=== PATIENT | male | born 1985 | race Caucasian/White ===

== ENCOUNTER 2017-07-26 10:33 | Emergency (ER) | payer BC ==
--- NOTE | 2017-07-26 11:21 | ED ---
Syncope HPI - General Chief Complaint: Syncope Stated Complaint: POSS SEIZURE Time Seen by Provider: 07/26/17 10:55 Source: patient Mode of arrival: wheelchair Limitations: no limitations - History of Present Illness Initial Comments: This is a 32-year-old female who presents with a chief complaint of syncope which occurred at approximately 5:00 this morning. The patient states he was sitting on a couch, had a "strange" taste in his mouth, and then he woke up on the floor next to the couch feeling confused and dizzy. He states he also had vision changes where he saw "floaters" immediately after he woke up. He is unsure if he hit his head. Patient does complain of mild headache but no associated symptoms.. The patient has a history of syncope with unknown cause that has never been treated. Patient has seen cardiologists for his prior syncopal episodes did have some evidence of postural tachycardia However, the patient states this episode was different in that he did not experience the "tunnel vision" that typically precedes the syncopal episode. He also states he has never experienced a taste in his mouth or wake up feeling confused and dizzy. He is concerned that he possibly had a seizure, but has no history of seizures. He denies changes in medication or associated weakness. The does not have vision in his right eye due to congenital adrenal hyperplasia. - Related Data Home Medications Medication Instructions Recorded Confirmed Fludrocortisone [Florinef] 0.1 mg PO DAILY 04/24/14 07/26/17 Hydrocortisone [Cortef] 10 mg PO TID 04/24/14 07/26/17 Allergies Allergy/AdvReac Type Severity Reaction Status Date / Time latex Allergy burning, Verified 07/26/17 11:11 itchy skin Review of Systems ROS Statement: Those systems with pertinent positive or pertinent negative responses have been documented in the HPI. ROS Other: All systems not noted in ROS Statement are negative. Past Medical History Additional Past Medical History / Comment(s): congenital adrenial hyperplasia, migraines History of Any Multi-Drug Resistant Organisms: None Reported Past Surgical History: Bariatric Surgery Additional Past Surgical History / Comment(s): lap band, retina implant, rt eye cataract Past Anesthesia/Blood Transfusion Reactions: No Reported Reaction Past Psychological History: Depression Smoking Status: Never smoker Past Alcohol Use History: Occasional Past Drug Use History: None Reported General Exam Limitations: no limitations General appearance: alert, in no apparent distress Head exam: Present: atraumatic, normocephalic, normal inspection, other (Head is non-tender with palpation) Eye exam: Present: normal appearance, PERRL, EOMI. Absent: scleral icterus, conjunctival injection, nystagmus, periorbital swelling Pupils: Present: normal accommodation ENT exam: Present: normal exam, normal oropharynx, mucous membranes moist, TM's normal bilaterally Neck exam: Present: normal inspection, full ROM. Absent: tenderness, meningismus, lymphadenopathy Respiratory exam: Present: normal lung sounds bilaterally. Absent: respiratory distress, wheezes, rales, rhonchi, stridor Cardiovascular Exam: Present: regular rate, normal rhythm, normal heart sounds. Absent: systolic murmur, diastolic murmur, rubs, gallop, clicks Extremities exam: Present: normal inspection, full ROM, normal capillary refill , other. Absent: pedal edema, joint swelling Neurological exam: Present: alert, oriented X3, CN II-XII intact, reflexes normal, other (Finger to nose intact bilaterally without over shooting). Absent : motor sensory deficit Psychiatric exam: Present: normal affect, normal mood Skin exam: Present: warm, dry, intact, normal color. Absent: rash Course Vital Signs 07/26/17 10:43 Temperature 98.7 F Pulse Rate 110 H Respiratory 18 Rate Blood Pressure 142/96 O2 Sat by Pulse 97 Oximetry Medical Decision Making - Medical Decision Making 32-year-old male present emergency department for possible seizure or syncopal episode. 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 Patient's laboratory, EKG unremarkable along with CT. Patient be followed up with on-call neurology return parameters were discussed. - Lab Data Result diagrams: 07/26/17 12:16 07/26/17 12:16 Lab Results 07/26/17 07/26/17 07/26/17 Range/Units 12:16 12:16 12:16 WBC 8.7 (3.8-10.6) k/uL RBC 4.99 (4.30-5.90) m/uL Hgb 15.6 (13.0-17.5) gm/dL Hct 45.0 (39.0-53.0) % MCV 90.2 (80.0-100.0) fL MCH 31.2 (25.0-35.0) pg MCHC 34.6 (31.0-37.0) g/dL RDW 12.5 (11.5-15.5) % Plt Count 306 (150-450) k/uL Neutrophils % 82 % Lymphocytes % 14 % Monocytes % 2 % Eosinophils % 1 % Basophils % 0 % Neutrophils # 7.1 (1.3-7.7) k/uL Lymphocytes # 1.3 (1.0-4.8) k/uL Monocytes # 0.2 (0-1.0) k/uL Eosinophils # 0.1 (0-0.7) k/uL Basophils # 0.0 (0-0.2) k/uL Sodium 139 (137-145) mmol/L Potassium 4.7 (3.5-5.1) mmol/L Chloride 104 (98-107) mmol/L Carbon Dioxide 22 (22-30) mmol/L Anion Gap 13 mmol/L BUN 11 (9-20) mg/dL Creatinine 0.70 (0.66-1.25) mg/dL Est GFR (MDRD) Af Amer >60 (>60 ml/min/1.73 sqM) Est GFR (MDRD) Non-Af >60 (>60 ml/min/1.73 sqM) Glucose 92 (74-99) mg/dL Calcium 9.7 (8.4-10.2) mg/dL Total Bilirubin 0.7 (0.2-1.3) mg/dL AST 27 (17-59) U/L ALT 24 (21-72) U/L Alkaline Phosphatase 47 (38-126) U/L Total Protein 7.8 (6.3-8.2) g/dL Albumin 4.6 (3.5-5.0) g/dL Urine Color Yellow Urine Appearance Clear (Clear) Urine pH 7.0 (5.0-8.0) Ur Specific [place] 1.010 (1.001-1.035) Urine Protein Negative (Negative) Urine Glucose (UA) Negative (Negative) Urine Ketones Negative (Negative) Urine Blood Small H (Negative) Urine Nitrite Negative (Negative) Urine Bilirubin Negative (Negative) Urine Urobilinogen <2.0 (<2.0) mg/dL Ur Leukocyte Esterase Negative (Negative) Urine RBC 3 (0-5) /hpf Urine WBC <1 (0-5) /hpf Ur Squamous Epith Cells <1 (0-4) /hpf Urine Mucus Rare H (None) /hpf Urine Opiates Screen Not Detected (NotDetected) Ur Oxycodone Screen Not Detected (NotDetected) Urine Methadone Screen Not Detected (NotDetected) Ur Propoxyphene Screen Not Detected (NotDetected) Ur Barbiturates Screen Not Detected (NotDetected) U Tricyclic Antidepress Not Detected (NotDetected) Ur Phencyclidine Scrn Not Detected (NotDetected) Ur Amphetamines Screen Not Detected (NotDetected) U Methamphetamines Scrn Not Detected (NotDetected) U Benzodiazepines Scrn Not Detected (NotDetected) Urine Cocaine Screen Not Detected (NotDetected) U Marijuana (THC) Screen Not Detected (NotDetected) Disposition Clinical Impression: Syncope Disposition: HOME SELF-CARE Condition: Stable Instructions: Syncope (ED) Additional Instructions: Please return to the Emergency Department if symptoms worsen or any other concerns. Referrals: Diamond Sheth DO [Primary Care Provider] - 1-2 days Trudy Perez MD [STAFF PHYSICIAN] - 1-2 days Time of Disposition: 13:39
[2017-07-26 12:24] LABS: Basophils % (A) 0 %; Eosinophils # (A) 0.1 k/uL (0-0.7); Eosinophils % (A) 1 %; HGB 15.6 gm/dL (13.0-17.5); Lymphocytes # (A) 1.3 k/uL (1.0-4.8); Lymphocytes % (A) 14 %; MCH 31.2 pg (25.0-35.0); MCHC 34.6 g/dL (31.0-37.0); MCV 90.2 fL (80.0-100.0); Monocytes # (A) 0.2 k/uL (0-1.0); Monocytes % (A) 2 %; Neutrophils # (A) 7.1 k/uL (1.3-7.7); Neutrophils % (A) 82 %; Platelet Count 306 k/uL (150-450); RBC 4.99 m/uL (4.30-5.90); RDW 12.5 % (11.5-15.5); WBC 8.7 k/uL (3.8-10.6)
[2017-07-26 12:25] LABS: Appearance,Urine Clear (Clear); Bilirubin,Urine Negative (Negative); Blood,Urine Small (Negative); Color,Urine Yellow; Glucose,Urine (UA) Negative (Negative); Ketones,Urine Negative (Negative); Leukocyte Esterase,Urine Negative (Negative); Mucus,Urine Rare /hpf; Nitrite,Urine Negative (Negative); Protein,Urine Negative (Negative); RBC,Urine 3 /hpf (0-5); Squamous Epithelial Cell,Urine <1 /hpf (0-4); Urobilinogen,Urine <2.0 mg/dL (<2.0); WBC,Urine <1 /hpf (0-5)
[2017-07-26 12:35] LABS: Albumin 4.6 g/dL (3.5-5.0); Anion Gap 13 mmol/L; Calcium 9.7 mg/dL (8.4-10.2); Carbon Dioxide 22 mmol/L (22-30); Chloride 104 mmol/L (98-107); Glucose 92 mg/dL (74-99); Sodium 139 mmol/L (137-145); Total Bilirubin 0.7 mg/dL (0.2-1.3); Total Protein 7.8 g/dL (6.3-8.2)
[2017-07-26 12:40] LABS: ALT 24 U/L (21-72); AST 27 U/L (17-59); Alkaline Phosphatase 47 U/L (38-126); Blood Urea Nitrogen 11 mg/dL (9-20); Potassium 4.7 mmol/L (3.5-5.1)
[2017-07-26 12:54] LABS: Amphetamine Screen,Urine Not Detected (NotDetected); Barbiturate Screen,Urine Not Detected (NotDetected); Benzodiazepines Screen,Urine Not Detected (NotDetected); Cocaine Screen,Urine Not Detected (NotDetected); Methadone Screen, Urine Not Detected (NotDetected); Opiate Screen,Urine Not Detected (NotDetected); Oxycodone Screen, Urine Not Detected (NotDetected); Phencyclidine Screen,Urine Not Detected (NotDetected); Tricyclic Antidepressant,Urine Not Detected (NotDetected); Urn Cannabinoid Scrn Not Detected (NotDetected)
--- NOTE | 2017-07-26 13:06 | CT ---
EXAMINATION TYPE: CT brain wo con DATE OF EXAM: 07/26/2017 COMPARISON: NONE HISTORY: possible seizure vs. syncopal. Coughing episode led to syncope. CT DLP: 1046 mGycm. Automated Exposure Control for Dose Reduction was Utilized. TECHNIQUE: CT scan of the head is performed without contrast. FINDINGS: There is no acute intracranial hemorrhage, mass effect, or midline shift identified. The ventricles and sulci are within normal limits in size. Near complete opacification of smaller right sphenoid sinus is present. There is mild mucosal thickening in the left sphenoid sinus. There is mild mucosal thickening with patchy opacification ethmoid sinuses bilaterally. There is scleral buckle in right globe. Left globe is intact. IMPRESSION: No acute intracranial hemorrhage or midline shift is seen. Possible acute on chronic par anasal sinus disease as detailed above, correlate clinically.
[2017-07-26 13:50] VITALS: BP 126/71; PULSE 76; RESP 12; TEMP 98.2
== END 2017-07-26 14:03 | disposition home or self-care (01) ==
LOC: EC 10:33
DX: R55 Syncope and collapse (principal); E25.0 Congenital adrenogenital disorders associated with enzyme deficiency; H43.399 Other vitreous opacities, unspecified eye; R51 Headache; Z79.52 Long term (current) use of systemic steroids; Z91.040 Latex allergy status; Z98.890 Other specified postprocedural states
CPT/HCPCS: 36415; 70450; 80053; 80306; 81001; 85025; 93005; 99284

== ENCOUNTER 2018-12-13 20:02 | Emergency (ER) | payer BC, OTHER ==
[2018-12-13 20:08] VITALS: TEMP 98.3
[2018-12-13 21:10] LABS: Amphetamine Screen,Urine Not Detected (NotDetected); Barbiturate Screen,Urine Not Detected (NotDetected); Benzodiazepines Screen,Urine Not Detected (NotDetected); Cocaine Screen,Urine Not Detected (NotDetected); Methadone Screen, Urine Not Detected (NotDetected); Opiate Screen,Urine Not Detected (NotDetected); Oxycodone Screen, Urine Not Detected (NotDetected); Phencyclidine Screen,Urine Not Detected (NotDetected); Tricyclic Antidepressant,Urine Not Detected (NotDetected); Urn Cannabinoid Scrn Detected (NotDetected)
[2018-12-13] MEDS ORDERED: SERTRALINE 100 MG TAB PO STA (23:16)
[2018-12-13] MEDS ORDERED: OLANZapine 5 MG TAB PO STA (23:16)
--- NOTE | 2018-12-13 23:18 | ED ---
Psych HPI - General Source: patient Mode of arrival: ambulatory <Jeevan Gibson - Last Filed: 12/14/18 12:46> - General Source: RN notes reviewed, old records reviewed <Bret Cheng - Last Filed: 12/14/18 18:14> - General Chief Complaint: Psychiatric Symptoms Stated Complaint: Suicidal Time Seen by Provider: 12/13/18 20:08 - History of Present Illness Initial Comments: 33-year-old male patient with past history of schizoaffective disorder presents to ED with chief complaint of hearing voices that are telling her to himself, telling him to hang himself. Patient denies taking any action to hurt himself or hurt any other people. Patient denies any thoughts of planned of hurting any other people. Patient denies any other complaints at this time. Systemic: Pt denies fatigue, fever/chills, rash. Pt denies weakness, night sweats, weight loss. Neuro: Pt denies headache, visual disturbances, syncope or pre-syncope. HEENT: Pt denies ocular discharge or irritation, otalgia, rhinorrhea, pharyngitis or notable lymphadenopathy. Cardiopulmonary: Pt denies chest pain, SOB, heart palpitations, dyspnea on exertion. Abdominal/GI: Pt denies abdominal pain, n/v/d. : Pt denies dysuria, burning w/ urination, frequency/urgency. Denies new onset urinary or bowel incontinence. MSK: Pt denies myalgia, loss of strength or function in extremities. Neuro: Pt denies new onset weakness, paresthesias. (Bret Cheng) - Related Data Home Medications Medication Instructions Recorded Confirmed Fludrocortisone [Florinef] 0.1 mg PO DAILY 04/24/14 12/13/18 Hydrocortisone [Cortef] 20 mg PO QAM 04/24/14 12/13/18 Hydrocortisone [Cortef] 10 mg PO BID 12/13/18 12/13/18 OLANZapine [ZyPREXA] 15 mg PO HS 12/13/18 12/13/18 Omeprazole 20 mg PO DAILY PRN 12/13/18 12/13/18 Sertraline [Zoloft] 100 mg PO HS 12/13/18 12/13/18 Allergies Allergy/AdvReac Type Severity Reaction Status Date / Time latex Allergy burning, Verified 12/13/18 20:21 itchy skin Review of Systems ROS Other: All systems not noted in ROS Statement are negative. <Jeevan Gibson - Last Filed: 12/14/18 12:46> ROS Other: All systems not noted in ROS Statement are negative. <Bret Cheng - Last Filed: 12/14/18 18:14> ROS Statement: Those systems with pertinent positive or pertinent negative responses have been documented in the HPI. Past Medical History Additional Past Medical History / Comment(s): congenital adrenial hyperplasia, migraines History of Any Multi-Drug Resistant Organisms: None Reported Past Surgical History: Bariatric Surgery Additional Past Surgical History / Comment(s): lap band, retina implant, rt eye cataract Past Anesthesia/Blood Transfusion Reactions: No Reported Reaction Past Psychological History: Depression, Schizoaffective Disorder Smoking Status: Never smoker Past Alcohol Use History: Occasional Past Drug Use History: Marijuana <Jeevan Gibson - Last Filed: 12/14/18 12:46> General Exam Limitations: no limitations <Jeevan Gibson - Last Filed: 12/14/18 12:46> <Bret Cheng - Last Filed: 12/14/18 18:14> - General Exam Comments Initial Comments: Constitutional: NAD, AOX3, Pt has pleasant affect. HEENT: NC/AT, trachea midline, neck supple, no lymphadenopathy. Posterior pharynx non erythematous, without exudates. External ears appear normal, without discharge. Mucous membranes moist. Eyes PERRLA, EOM intact. There is no scleral icterus. No pallor noted. Cardiopulmonary: RRR, no murmurs, rubs or gallops, no JVD noted. Lungs CTAB in anterior and posterior wynne. No peripheral edema. Abdominal exam: Abdomen soft and non-distended. Abdomen non-tender to palpation in all 4 quadrants. Bowel sounds active in LLQ. No hepatosplenomegaly. No ecchymosis Neuro: CN II-XII grossly intact. No nuchal rigidity. No raccon eyes, no hurst sign, no hemotympanum. No cervical spinal tenderness. MSK: No posterior calf tenderness bilaterally, homans sign negative bilaterally. Posterior tibialis and radial pulse +2 bilaterally. Sensation intact in upper and lower extremities. Full active ROM in upper and lower extremities, 5/5 st regnth. (Bret Cheng) Course Vital Signs 12/13/18 12/13/18 12/14/18 20:05 23:08 00:35 Temperature 98.3 F Pulse Rate 75 77 77 Respiratory 16 18 18 Rate Blood Pressure 139/85 115/63 115/63 O2 Sat by Pulse 96 95 95 Oximetry 12/14/18 02:34 Temperature Pulse Rate 70 Respiratory 16 Rate Blood Pressure 112/98 O2 Sat by Pulse Oximetry Medical Decision Making - Lab Data Result diagrams: 12/13/18 23:52 12/13/18 23:52 <Jeevan Gibson - Last Filed: 12/14/18 12:46> - Lab Data Result diagrams: 12/13/18 23:52 12/13/18 23:52 <Bret Cheng - Last Filed: 12/14/18 18:14> - Medical Decision Making I saw this patient in conjunction with the physician dairy and food laboratory assistant. I performed independent history and physical exam. Agree with case management. In addition to seeing the patient to fill out the clinical certification, I was asked to resume home medications and confirm these with the patient. (Jeevan Gibson) 33-year-old male patient with past history of schizoaffective disorder presents to ED with chief complaint of hearing voices that are telling her to himself, telling him to hang himself. Patient denies taking any action to hurt himself or hurt any other people. Patient denies any thoughts of planned of hurting any other people. Patient denies any other complaints at this time. Patient vital signs stable, afebrile. Physical exam did not display acute pathology. EPS reccomended admission. Patient was signed out to Dr. Ritter pending EPS placement. (Bret Cheng) - Lab Data Lab Results 12/13/18 12/13/18 12/13/18 Range/Units 20:30 23:52 23:52 WBC 7.9 (3.8-10.6) k/uL RBC 4.49 (4.30-5.90) m/uL Hgb 13.3 (13.0-17.5) gm/dL Hct 39.7 (39.0-53.0) % MCV 88.5 (80.0-100.0) fL MCH 29.7 (25.0-35.0) pg MCHC 33.5 (31.0-37.0) g/dL RDW 14.3 (11.5-15.5) % Plt Count 335 (150-450) k/uL Neutrophils % 53 % Lymphocytes % 36 % Monocytes % 6 % Eosinophils % 3 % Basophils % 1 % Neutrophils # 4.2 (1.3-7.7) k/uL Lymphocytes # 2.8 (1.0-4.8) k/uL Monocytes # 0.5 (0-1.0) k/uL Eosinophils # 0.2 (0-0.7) k/uL Basophils # 0.1 (0-0.2) k/uL Sodium 136 L (137-145) mmol/L Potassium 4.4 (3.5-5.1) mmol/L Chloride 104 (98-107) mmol/L Carbon Dioxide 22 (22-30) mmol/L Anion Gap 10 mmol/L BUN 16 (9-20) mg/dL Creatinine 0.91 (0.66-1.25) mg/dL Est GFR (CKD-EPI)AfAm >90 (>60 ml/min/1.73 sqM) Est GFR (CKD-EPI)NonAf >90 (>60 ml/min/1.73 sqM) Glucose 95 (74-99) mg/dL Calcium 8.9 (8.4-10.2) mg/dL Total Bilirubin 0.2 (0.2-1.3) mg/dL AST 22 (17-59) U/L ALT 26 (21-72) U/L Alkaline Phosphatase 51 (38-126) U/L Total Protein 6.8 (6.3-8.2) g/dL Albumin 4.0 (3.5-5.0) g/dL Urine Opiates Screen Not Detected (NotDetected) Ur Oxycodone Screen Not Detected (NotDetected) Urine Methadone Screen Not Detected (NotDetected) Ur Propoxyphene Screen Not Detected (NotDetected) Ur Barbiturates Screen Not Detected (NotDetected) U Tricyclic Antidepress Not Detected (NotDetected) Ur Phencyclidine Scrn Not Detected (NotDetected) Ur Amphetamines Screen Not Detected (NotDetected) U Methamphetamines Scrn Not Detected (NotDetected) U Benzodiazepines Scrn Not Detected (NotDetected) Urine Cocaine Screen Not Detected (NotDetected) U Marijuana (THC) Screen Detected H (NotDetected) Disposition <Jeevan Gibson - Last Filed: 12/14/18 12:46> Is patient prescribed a controlled substance at d/c from ED?: No <Bret Cheng - Last Filed: 12/14/18 18:14> Clinical Impression: Psychiatric disorder Disposition: ADMITTED IP TO THIS HOSP Condition: Serious Instructions (If sedation given, give patient instructions): Schizoaffective Disorder (ED) Referrals: Diamond Sheth DO [Primary Care Provider] - 1-2 days
[2018-12-14 00:46] LABS: ALT 26 U/L (21-72); AST 22 U/L (17-59); African American GFR (CKD) >90 (>60 ml/min/1.73 sqM); Alkaline Phosphatase 51 U/L (38-126); Anion Gap 10 mmol/L; Blood Urea Nitrogen 16 mg/dL (9-20); Calcium 8.9 mg/dL (8.4-10.2); Carbon Dioxide 22 mmol/L (22-30); Chloride 104 mmol/L (98-107); Glucose 95 mg/dL (74-99); Potassium 4.4 mmol/L (3.5-5.1); Sodium 136 mmol/L (137-145); Total Bilirubin 0.2 mg/dL (0.2-1.3); Total Protein 6.8 g/dL (6.3-8.2)
[2018-12-14 00:48] LABS: Basophils # (A) 0.1 k/uL (0-0.2); Basophils % (A) 1 %; Eosinophils # (A) 0.2 k/uL (0-0.7); Eosinophils % (A) 3 %; HCT 39.7 % (39.0-53.0); HGB 13.3 gm/dL (13.0-17.5); Lymphocytes # (A) 2.8 k/uL (1.0-4.8); Lymphocytes % (A) 36 %; MCH 29.7 pg (25.0-35.0); MCHC 33.5 g/dL (31.0-37.0); MCV 88.5 fL (80.0-100.0); Mean Platelet Volume 7.3; Monocytes # (A) 0.5 k/uL (0-1.0); Monocytes % (A) 6 %; Neutrophils # (A) 4.2 k/uL (1.3-7.7); Neutrophils % (A) 53 %; Platelet Count 335 k/uL (150-450); RBC 4.49 m/uL (4.30-5.90); RDW 14.3 % (11.5-15.5); WBC 7.9 k/uL (3.8-10.6)
[2018-12-14 02:39] VITALS: BP 112/98; PULSE 70; RESP 16
== END 2018-12-14 02:42 | disposition other institution (70) ==
LOC: EC 20:02
DX: F99 Mental disorder, not otherwise specified (principal); R45.851 Suicidal ideations; F32.9 Major depressive disorder, single episode, unspecified; F25.9 Schizoaffective disorder, unspecified; Z79.52 Long term (current) use of systemic steroids; Z79.899 Other long term (current) drug therapy; Z91.040 Latex allergy status
CPT/HCPCS: 36415; 80053; 80306; 82075; 85025; 99285

== ENCOUNTER 2019-03-27 13:11 | Inpatient (IN) | payer MEDICAID, OTHER ==
--- NOTE | 2019-03-27 16:11 | ED ---
Psych HPI - General Chief Complaint: Psychiatric Symptoms Stated Complaint: Mental Health Time Seen by Provider: 03/27/19 13:30 Source: patient, RN notes reviewed Mode of arrival: ambulatory Limitations: no limitations - History of Present Illness Initial Comments: 33-year-old male presents emergency Department with chief complaint of depression, suicidal ideation. Patient states that he is long history of depression. Patient is been having some recent medication adjustments by [facility] and states that he is feeling worse. Patient states that he just did not feel safe today so he came to the emergency department. Patient reports no self-harm denies any drug or alcohol abuse. Denies any physical complaints. - Related Data Home Medications Medication Instructions Recorded Confirmed Fludrocortisone [Florinef] 0.1 mg PO DAILY 04/24/14 03/27/19 Hydrocortisone [Cortef] 20 mg PO QAM 04/24/14 03/27/19 Hydrocortisone [Cortef] 10 mg PO BID@1200,2100 12/13/18 03/27/19 Benztropine Mesylate [Cogentin] 1 mg PO BID 03/27/19 03/27/19 Brexpiprazole [Rexulti] 3 mg PO DAILY 03/27/19 03/27/19 Vortioxetine Hydrobromide 10 mg PO DAILY 03/27/19 03/27/19 [Trintellix] Zolpidem [Ambien] 10 mg PO HS PRN 03/27/19 03/27/19 traZODone HCL 25 - 100 mg PO HS 03/27/19 03/27/19 Allergies Allergy/AdvReac Type Severity Reaction Status Date / Time latex Allergy burning, Verified 03/27/19 14:04 itchy skin Review of Systems ROS Statement: Those systems with pertinent positive or pertinent negative responses have been documented in the HPI. ROS Other: All systems not noted in ROS Statement are negative. Past Medical History Additional Past Medical History / Comment(s): congenital adrenial hyperplasia, migraines History of Any Multi-Drug Resistant Organisms: None Reported Past Surgical History: Bariatric Surgery Additional Past Surgical History / Comment(s): lap band, retina implant, rt eye cataract Past Anesthesia/Blood Transfusion Reactions: No Reported Reaction Past Psychological History: Depression, Schizoaffective Disorder Smoking Status: Never smoker Past Alcohol Use History: Occasional Past Drug Use History: Marijuana General Exam Limitations: no limitations General appearance: alert, in no apparent distress Head exam: Present: atraumatic, normocephalic, normal inspection Eye exam: Present: normal appearance, PERRL, EOMI. Absent: scleral icterus, conjunctival injection, periorbital swelling ENT exam: Present: normal exam, normal oropharynx, mucous membranes moist Neck exam: Present: normal inspection, full ROM. Absent: tenderness, meningismus, lymphadenopathy Respiratory exam: Present: normal lung sounds bilaterally. Absent: respiratory distress, wheezes, rales, rhonchi, stridor Cardiovascular Exam: Present: regular rate, normal rhythm, normal heart sounds. Absent: systolic murmur, diastolic murmur, rubs, gallop, clicks GI/Abdominal exam: Present: soft, normal bowel sounds. Absent: distended, tenderness, guarding, rebound, rigid Neurological exam: Present: alert, oriented X3, CN II-XII intact Psychiatric exam: Present: depressed Skin exam: Present: warm, dry, intact, normal color. Absent: rash Course Vital Signs 03/27/19 13:19 Temperature 97.6 F Pulse Rate 89 Respiratory 18 Rate Blood Pressure 154/103 O2 Sat by Pulse 94 L Oximetry Medical Decision Making - Medical Decision Making 33-year-old male presented for psychiatric evaluation evaluated by EPS, [facility] recommend inpatient treatment. Disposition Clinical Impression: Depression, Suicidal ideation Disposition: TRANSFER TO PSYCH HOSP/UNIT Condition: Stable Referrals: Diamond Sheth DO [Primary Care Provider] - 1-2 days
[2019-03-27 16:25] LABS: Amphetamine Screen,Urine Not Detected (NotDetected); Barbiturate Screen,Urine Not Detected (NotDetected); Benzodiazepines Screen,Urine Not Detected (NotDetected); Cocaine Screen,Urine Not Detected (NotDetected); Methadone Screen, Urine Not Detected (NotDetected); Opiate Screen,Urine Not Detected (NotDetected); Oxycodone Screen, Urine Not Detected (NotDetected); Phencyclidine Screen,Urine Not Detected (NotDetected); Tricyclic Antidepressant,Urine Not Detected (NotDetected); Urn Cannabinoid Scrn Detected (NotDetected)
[2019-03-27 17:46] VITALS: BMI 46.1
[2019-03-27] MEDS ORDERED: ZOLPIDEM 10 MG TAB PO PRN (18:15)
[2019-03-27] MEDS ORDERED: MAGNESIUM HYDROXIDE 2,400 MG/10 ML CUP PO PRN (18:17)
[2019-03-27] MEDS ORDERED: MAG HYDROX/AL HYDROX/SIMETH 30 ML CUP PO PRN (18:17)
[2019-03-27] MEDS ORDERED: LORazepam 1 MG TAB PO PRN (18:17)
[2019-03-27] MEDS ORDERED: ACETAMINOPHEN TAB 325 MG TAB PO PRN (18:17)
[2019-03-27] MEDS ORDERED: ZIPRASIDONE 20 MG VIAL IM PRN (18:17)
[2019-03-27] MEDS: HYDROCORTISONE 10 MG TAB PO SCH (20:54)
[2019-03-27] MEDS ORDERED: traZODone HCL 50 MG TAB PO SCH (21:00)
[2019-03-28 07:22] LABS: Basophils % (A) 0 %; Eosinophils # (A) 0.1 k/uL (0-0.7); Eosinophils % (A) 2 %; HCT 41.2 % (39.0-53.0); HGB 14.2 gm/dL (13.0-17.5); Lymphocytes # (A) 2.4 k/uL (1.0-4.8); Lymphocytes % (A) 35 %; MCH 29.8 pg (25.0-35.0); MCHC 34.4 g/dL (31.0-37.0); MCV 86.7 fL (80.0-100.0); Mean Platelet Volume 6.2; Monocytes # (A) 0.3 k/uL (0-1.0); Monocytes % (A) 5 %; Neutrophils # (A) 3.9 k/uL (1.3-7.7); Neutrophils % (A) 57 %; Platelet Count 307 k/uL (150-450); RBC 4.76 m/uL (4.30-5.90); RDW 12.7 % (11.5-15.5); WBC 6.8 k/uL (3.8-10.6)
[2019-03-28 07:38] LABS: ALT 19 U/L (21-72); AST 16 U/L (17-59); African American GFR (CKD) >90 (>60 ml/min/1.73 sqM); Albumin 4.2 g/dL (3.5-5.0); Alkaline Phosphatase 37 U/L (38-126); Anion Gap 10 mmol/L; Blood Urea Nitrogen 14 mg/dL (9-20); Calcium 9.4 mg/dL (8.4-10.2); Carbon Dioxide 28 mmol/L (22-30); Chloride 103 mmol/L (98-107); Cholesterol 189 mg/dL (<200); Glucose 87 mg/dL (74-99); HDL Cholesterol 69 mg/dL (40-60); LDL Cholesterol,Calculated 95 mg/dL (0-99); Sodium 141 mmol/L (137-145); Total Bilirubin 0.7 mg/dL (0.2-1.3); Total Protein 7.4 g/dL (6.3-8.2); Triglycerides 127 mg/dL (<150)
[2019-03-28] MEDS ORDERED: VORTIOXETINE HYDROBROMIDE 10 MG TABLET PO SCH (09:00)
[2019-03-28] MEDS ORDERED: REXULTI 3 MG PO SCH (09:00)
[2019-03-28] MEDS: HYDROCORTISONE 10 MG TAB PO SCH ×3 (09:04→20:22)
[2019-03-28] MEDS: FLUDROCORTISONE 0.1 MG TAB PO SCH (09:04)
--- NOTE | 2019-03-28 14:01 | P.CONS ---
History of Present Illness - Reason for Consult medical clearance - History of Present Illness pleasant 33-year-old male was admitted the with depression and suicidal ideation to psychiatric floor. 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 Patient blood pressures but elevatedbut serum sodium is within normal limits. Patient denied any fever chills nausea vomiting abdominal pain. Patient's drug screen is positive for marijuana.. Patient denied any nicotine abuse history Review of Systems REVIEW OF SYSTEMS: CONSTITUTIONAL: No fever, no malaise, no fatigue. HEENT: No recent visual problems or hearing problems. Denied any sore throat. CARDIOVASCULAR: No chest pain, orthopnea, PND, no palpitations, no syncope. PULMONARY: No shortness of breath, no cough, no hemoptysis. GASTROINTESTINAL: No diarrhea, no nausea, no vomiting, no abdominal pain. NEUROLOGICAL: No headaches, no weakness, no numbness. HEMATOLOGICAL: Denies any bleeding or petechiae. GENITOURINARY: Denies any burning micturition, frequency, or urgency. MUSCULOSKELETAL/RHEUMATOLOGICAL: Denies any joint pain, swelling, or any muscle pain. ENDOCRINE: Denies any polyuria or polydipsia. The rest of the 14-point review of systems is negative. Past Medical History Additional Past Medical History / Comment(s): congenital adrenial hyperplasia, migraines History of Any Multi-Drug Resistant Organisms: None Reported Past Surgical History: Bariatric Surgery Additional Past Surgical History / Comment(s): lap band, retina implant, rt eye cataract Past Anesthesia/Blood Transfusion Reactions: No Reported Reaction Past Psychological History: Anxiety, Depression, Schizoaffective Disorder Smoking Status: Never smoker Past Alcohol Use History: None Reported Past Drug Use History: Marijuana - Past Family History Mother Additional Family Medical History / Comment(s): Anxiety Father Family Medical History: Diabetes Mellitus Additional Family Medical History / Comment(s): Depression Medications and Allergies Home Medications Medication Instructions Recorded Confirmed Type Fludrocortisone [Florinef] 0.1 mg PO DAILY 04/24/14 03/27/19 History Hydrocortisone [Cortef] 20 mg PO QAM 04/24/14 03/27/19 History Hydrocortisone [Cortef] 10 mg PO BID@1200,2100 12/13/18 03/27/19 History Benztropine Mesylate [Cogentin] 1 mg PO BID 03/27/19 03/27/19 History Brexpiprazole [Rexulti] 3 mg PO DAILY 03/27/19 03/27/19 History Vortioxetine Hydrobromide 10 mg PO DAILY 03/27/19 03/27/19 History [Trintellix] Zolpidem [Ambien] 10 mg PO HS PRN 03/27/19 03/27/19 History traZODone HCL 25 - 100 mg PO HS 03/27/19 03/27/19 History Allergies Allergy/AdvReac Type Severity Reaction Status Date / Time latex Allergy burning, Verified 03/27/19 17:46 itchy skin Physical Exam Vitals: Vital Signs Temp Pulse Pulse Resp BP BP Pulse Ox 03/28/19 06:43 98.2 F 66 16 93/55 03/27/19 17:36 97.7 F 88 20 138/102 03/27/19 17:23 97.6 F 89 18 154/103 94 L PHYSICAL EXAMINATION: GENERAL: The patient is alert and oriented x3, not in any acute distress. Well developed, well nourished. HEENT: Pupils are round and equally reacting to light. EOMI. No scleral icterus. No conjunctival pallor. Normocephalic, atraumatic. No pharyngeal erythema. No thyromegaly. CARDIOVASCULAR: S1 and S2 present. No murmurs, rubs, or gallops. PULMONARY: Chest is clear to auscultation, no wheezing or crackles. ABDOMEN: Soft, nontender, nondistended, normoactive bowel sounds. No palpable organomegaly. MUSCULOSKELETAL: No joint swelling or deformity. EXTREMITIES: No cyanosis, clubbing, or pedal edema. NEUROLOGICAL: Gross neurological examination did not reveal any focal deficits. SKIN: No rashes. Results CBC & Chem 7: 03/28/19 07:06 03/28/19 07:06 Labs: Abnormal Lab Results - Last 24 Hours (Table) 03/27/19 03/28/19 Range/Units 15:54 07:06 AST 16 L (17-59) U/L ALT 19 L (21-72) U/L Alkaline Phosphatase 37 L (38-126) U/L HDL Cholesterol 69 H (40-60) mg/dL U Marijuana (THC) Screen Detected H (NotDetected) Assessment and Plan Plan: depression and suicidal ideation: Management as per primary service. -congenital adrenal hyperplasia: Serum sodium is within normal limits continue with same dose of Cardizem for now -Marijuana use: Counseling was provided -History of migraine doesn't have any significant headache at this time. -Obesity
--- NOTE | 2019-03-28 14:29 | P.HP ---
Psychiatric H&P - . H&P Date: 03/28/19 History & Physical: Allergies Allergy/AdvReac Type Severity Reaction Status Date / Time latex Allergy burning, Verified 03/27/19 17:46 itchy skin Vital Signs Temp 98.2 F 03/28/19 06:43 Pulse 66 03/28/19 06:43 Resp 16 03/28/19 06:43 BP 93/55 03/28/19 06:43 Pulse Ox 94 L 03/27/19 17:23 Intake & Output 03/27/19 03/28/19 03/28/19 18:59 06:59 18:59 Weight 124.738 kg Laboratory Last Values WBC 6.8 k/uL (3.8-10.6) 03/28/19 07:06 RBC 4.76 m/uL (4.30-5.90) 03/28/19 07:06 Hgb 14.2 gm/dL (13.0-17.5) 03/28/19 07:06 Hct 41.2 % (39.0-53.0) 03/28/19 07:06 MCV 86.7 fL (80.0-100.0) 03/28/19 07:06 MCH 29.8 pg (25.0-35.0) 03/28/19 07:06 MCHC 34.4 g/dL (31.0-37.0) 03/28/19 07:06 RDW 12.7 % (11.5-15.5) 03/28/19 07:06 Plt Count 307 k/uL (150-450) 03/28/19 07:06 Neutrophils % 57 % 03/28/19 07:06 Lymphocytes % 35 % 03/28/19 07:06 Monocytes % 5 % 03/28/19 07:06 Eosinophils % 2 % 03/28/19 07:06 Basophils % 0 % 03/28/19 07:06 Neutrophils # 3.9 k/uL (1.3-7.7) 03/28/19 07:06 Lymphocytes # 2.4 k/uL (1.0-4.8) 03/28/19 07:06 Monocytes # 0.3 k/uL (0-1.0) 03/28/19 07:06 Eosinophils # 0.1 k/uL (0-0.7) 03/28/19 07:06 Basophils # 0.0 k/uL (0-0.2) 03/28/19 07:06 Sodium 141 mmol/L (137-145) 03/28/19 07:06 Potassium 4.0 mmol/L (3.5-5.1) 03/28/19 07:06 Chloride 103 mmol/L (98-107) 03/28/19 07:06 Carbon Dioxide 28 mmol/L (22-30) 03/28/19 07:06 Anion Gap 10 mmol/L 03/28/19 07:06 BUN 14 mg/dL (9-20) 03/28/19 07:06 Creatinine 0.84 mg/dL (0.66-1.25) 03/28/19 07:06 Est GFR (CKD-EPI)AfAm >90 (>60 ml/min/1.73 sqM) 03/28/19 07:06 Est GFR (CKD-EPI)NonAf >90 (>60 ml/min/1.73 sqM) 03/28/19 07:06 Glucose 87 mg/dL (74-99) 03/28/19 07:06 Calcium 9.4 mg/dL (8.4-10.2) 03/28/19 07:06 Total Bilirubin 0.7 mg/dL (0.2-1.3) 03/28/19 07:06 AST 16 U/L (17-59) L 03/28/19 07:06 ALT 19 U/L (21-72) L 03/28/19 07:06 Alkaline Phosphatase 37 U/L (38-126) L 03/28/19 07:06 Total Protein 7.4 g/dL (6.3-8.2) 03/28/19 07:06 Albumin 4.2 g/dL (3.5-5.0) 03/28/19 07:06 Triglycerides 127 mg/dL (<150) 03/28/19 07:06 Cholesterol 189 mg/dL (<200) 03/28/19 07:06 LDL Cholesterol, Calc 95 mg/dL (0-99) 03/28/19 07:06 HDL Cholesterol 69 mg/dL (40-60) H 03/28/19 07:06 TSH 2.770 mIU/L (0.465-4.680) 03/28/19 07:06 Urine Opiates Screen Not Detected (NotDetected) 03/27/19 15:54 Ur Oxycodone Screen Not Detected (NotDetected) 03/27/19 15:54 Urine Methadone Screen Not Detected (NotDetected) 03/27/19 15:54 Ur Propoxyphene Screen Not Detected (NotDetected) 03/27/19 15:54 Ur Barbiturates Screen Not Detected (NotDetected) 03/27/19 15:54 U Tricyclic Antidepress Not Detected (NotDetected) 03/27/19 15:54 Ur Phencyclidine Scrn Not Detected (NotDetected) 03/27/19 15:54 Ur Amphetamines Screen Not Detected (NotDetected) 03/27/19 15:54 U Methamphetamines Scrn Not Detected (NotDetected) 03/27/19 15:54 U Benzodiazepines Scrn Not Detected (NotDetected) 03/27/19 15:54 Urine Cocaine Screen Not Detected (NotDetected) 03/27/19 15:54 U Marijuana (THC) Screen Detected (NotDetected) H 03/27/19 15:54 03/28/19 14:19 IDENTIFYING DATA: Patient is a 33-year-old male the chronic history of depression who currently lives with his and 3 kids is unemployed and lives in an apartment. HPI: Patient presented to the hospital after being seen by [facility] and having medication adjustment which made him feel more depressed and was presenting with suicidal ideations with no plan. Patient was evaluated by bid writer and was calm and directable however did appear to be somewhat anxious and fidgeting at times. Patient states that he's been dealing with depression "my whole life" referring back to his childhood. He states that it has been progressively gotten severe to the point where he is hearing voices since September. 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 He states that at baseline the voices are conversations which she cannot really hear or understand. He states that his anxiety has been increasing to the point where he is thinking about his children getting hurt anywhere to go. When asked about the medication adjustment at [facility] patient states that his first intake appointment he was switched off his attitude 40 mg on to Rexulti and has been on this medication since 2 weeks ago. He states that live to do was giving him akathisia and feeling restless. Patient claims that his suicidal ideation is frequent and he thinks about it daily now and finds himself "not having any emotions about it". Patient admits to decrease in energy and poor sleep and poor concentration. Patient also states that his appetite has been increased. Patient denies any suicidal or homicidal intent or plan however patient does currently have suicidal ideations. At this time patient auditory hallucinations. Patient denies any flight of ideas racing thoughts and increased in goal directed behavior. Patient admits to using marijuana approximately 2 times per month which helps him with his anxiety. He denies any other recreational drugs including cigarettes or alcohol. PAST PSYCHIATRIC HISTORY: Patient states that he has been admitted for depressive symptoms approximately 6 times in the past and was recently admitted to [facility] in November. He claims that he is recently started following up at [facility] with Yudith Freire. He admits to having 1 suicide attempt as a teenager when he attempted to hang himself with a belt. She admitted to being on several medications including intellect's, Wellbutrin, Zyprexa. PMH: Congenital adrenal hyperplasia ALLERGIES: as per EMR CHEMICAL DEPENDENCY HISTORY: as per HPI FAMILY PSYCHIATRIC/SUBSTANCE USE HISTORY: He states that his mother and sister have anxiety and panic attacks. He claims that his father was depressed and attempted suicide. He states that his brother was diagnosed with schizophrenia. SOCIAL HISTORY: Patient claims to be born and raised in [place] graduated high school and attended some college dropped out. 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 He currently lives with his in apartment and 3 kids and is unemployed. MENTAL STATUS EXAM: General Appearance: Patient appears to be overweight, stated age is alert, pleasant, and cooperative. Patient has poor eye contact appears to have a depressed affect. Behavior: Patient is seated without any agitated behavior. Patient was fidgeting at times of his hands. Speech: Patient's speech is fluent and nonpressured. Mood/Affect: Patient reports their mood is depressed, affect is congruent and constricted. Suicidality/Homicidality: Patient currently admits to having suicidal ideations denies any homicidal ideations intent or plan. Perceptions: Patient admits to auditory hallucinations of conversations he cannot hear and mood congruent negative comments towards him. Though content/process: There is no evidence of any delusional thought content and thought process is linear and goal-directed. Memory and concentration: AOX3, grossly intact for the purposes of this session. Can spell "WORLD" backwards Judgment and insight: fair STRENGTHS/WEAKNESSES: strength is that patient is compliant with his medications and has fair insight. Patient has poor coping skills and chronic mental illness. INTELLECT: average IMPRESSIONS: Major depressive disorder, severe, with psychotic features Anxiety disorder unspecified Cannabis use disorder PLAN: -Patient is admitted under voluntary status to [facility] for stabilization of psychiatric symptoms and safety. Patient signed adult voluntary form and medication consent and is placed in patient's chart. -Medications : Will start patient on Geodon 20 mg twice a day for psychosis/mood stabilization. We'll also start patient on Zoloft 50 mg daily for anxiety/mood. Trazodone 100 mg daily at bedtime for insomnia and mood. Vistaril 25 mg every 6 hours when needed for anxiety. -EKG for baseline prior to starting new medications. -Geodon PRN for agitation/aggression -Patient was counselled on substance abuse and desired to cut back on use -Patient was informed of the risks, benefits and side effects of the medication and patient verbally consented to taking the medications. Patient signed med consent form and was placed in chart. -NRT -not need this patient does not smoke - on board for discharge planning 03/28/19 14:29
[2019-03-28 14:56] LABS: Hemoglobin A1C 4.9 % (4.0-6.0)
[2019-03-28] MEDS: SERTRALINE 50 MG TAB PO SCH (15:03)
[2019-03-28] MEDS: hydrOXYzine PAMOATE 25 MG CAP PO PRN (15:03)
[2019-03-28 16:34] LABS: Appearance,Urine Clear (Clear); Bilirubin,Urine Negative (Negative); Blood,Urine Small (Negative); Color,Urine Light Yellow; Glucose,Urine (UA) Negative (Negative); Ketones,Urine Negative (Negative); Leukocyte Esterase,Urine Negative (Negative); Mucus,Urine Rare /hpf; Nitrite,Urine Negative (Negative); Protein,Urine Negative (Negative); RBC,Urine 3 /hpf (0-5); Specific Gravity,Urine 1.007 (1.001-1.035); Urobilinogen,Urine <2.0 mg/dL (<2.0)
[2019-03-28] MEDS: traZODone HCL 100 MG TAB PO SCH (20:21)
[2019-03-28] MEDS: ZIPRASIDONE 20 MG CAP PO SCH (20:21)
[2019-03-29] MEDS: SERTRALINE 50 MG TAB PO SCH (09:20)
[2019-03-29] MEDS: ZIPRASIDONE 20 MG CAP PO SCH ×2 (09:20→21:01)
[2019-03-29] MEDS: FLUDROCORTISONE 0.1 MG TAB PO SCH (09:21)
[2019-03-29] MEDS: HYDROCORTISONE 10 MG TAB PO SCH ×3 (09:21→21:01)
[2019-03-29] MEDS: hydrOXYzine PAMOATE 25 MG CAP PO PRN ×2 (09:22→15:38)
--- NOTE | 2019-03-29 09:56 | P.PN ---
Progress Note - Text Progress Note Date: 03/29/19 Interval History: Patient was seen wandering the hallways and was agreeable to senior underwriter in the off ice. Patient states that he slept much better last night and feels safer in the hospital which he claims is helping his mood. He states that in he did have some improvement however claims that the voices are still present. He states that in the hospital he is not able to hurt himself so feels calmer. Patient claims that he is continuing to feel restless claims it's hard for him to calm down and rest in his bed. He states that he is compliant with the medications and feels that they are helping. Patient claims that he was trying to go to groups and participate however his restlessness prevented him from doing so. His energy is fair appetite is good. At this time patient admits to ongoing suicidal ideations however no intent or plan. Patient denies any homicidal ideations. Patient denies any auditory, visual hallucinations and denies any paranoia or delusions. Patient denies any side effects from the medications and has been compliant with meds. Mental Status Exam: General Appearance: Patient appears to be overweight, stated age is alert, pleasant, and cooperative. Patient has improved eye contact. Behavior: Patient is seated without any agitated behavior. Patient was fid geting at times of his hands. Speech: Patient's speech is fluent and nonpressured. Mood/Affect: Patient reports their mood is depressed, affect is congruent and constricted. Suicidality/Homicidality: Patient currently admits to having suicidal ideations denies any homicidal ideations intent or plan. Perceptions: Patient admits to improving auditory hallucinations of conversations. Though content/process: There is no evidence of any delusional thought content and thought process is linear and goal-directed. Memory and concentration: AOX3, grossly intact for the purposes of this session. Judgment and insight: fair, improving Assessment Major depressive disorder, severe, with psychotic features Anxiety disorder unspecified Cannabis use disorder Plan: -Patient continues to meet criteria for inpatient psychiatric admission for symptom stabilization and safety. Patient has signed adult voluntary form and medication consent and was placed in patient's chart. -Medications: We'll continue Geodon 20 mg twice a day for psychosis/mood stabilization. Will increase Zoloft to 100 mg daily for anxiety/mood. Continue with trazodone 100 mg daily at bedtime for insomnia and mood. Will continue with Vistaril 25 mg every 6 hours when needed for anxiety. Will start patient on Inderal 20 mg twice a day, hold for systolic blood pressure less than 100. -When necessary Geodon for agitation/aggression. -EKG performed on 03/28/2019 showed QTc interval of 430, NSR -NRT -not needed as patient does not smoke -SW on board for discharge planning.
[2019-03-29] MEDS: PROPRANOLOL 20 MG TAB PO SCH ×2 (11:11→21:01)
[2019-03-29] MEDS: traZODone HCL 100 MG TAB PO SCH (21:01)
[2019-03-30] MEDS: HYDROCORTISONE 10 MG TAB PO SCH ×3 (08:25→21:24)
[2019-03-30] MEDS: FLUDROCORTISONE 0.1 MG TAB PO SCH (08:25)
[2019-03-30] MEDS: PROPRANOLOL 20 MG TAB PO SCH ×3 (08:25→21:24)
[2019-03-30] MEDS: ZIPRASIDONE 20 MG CAP PO SCH ×2 (08:25→21:24)
[2019-03-30] MEDS ORDERED: SERTRALINE 100 MG TAB PO SCH (09:00)
--- NOTE | 2019-03-30 12:19 | P.PN ---
Progress Note - Text Progress Note Date: 03/30/19 Interval History: Patient was seen in his room and was agreeable to field underwriter in the office. Patient states that he slept fair last night however he did get waking up by a new patient that came onto the unit and was being loud and intrusive. He states that he was able to fall asleep afterwards and did not have any other problems. Patient admitted to improvement with regards to his mood and anxiety. He also stated that today he does not feel suicidal which is a big relief for him and claims that the voices that he was hearing are just a "background noise now" and are not commanding him to do anything. He claims that he is thankful for being in the hospital and improvement. He states that his medications are making him feel calmer. He admits to substantial improvement in his akathisia and restlessness during the day and claims that "I'm able to actually sit and focus on things now". His energy is fair appetite is good. Patient denies any suicidal or homicidal ideations intent or plan. Patient denies any auditory, visual hallucinations and denies any paranoia or delusions. Patient denies any side effects from the medications and has been compliant with meds. Mental Status Exam: General Appearance: Patient appears to be overweight, stated age is alert, pleasant, and cooperative. Patient has improved eye contact. Behavior: Patient is seated without any agitated behavior. Patient is not fidgeting at this time with his hands. Speech: Patient's speech is fluent and nonpressured. Normal tone. Mood/Affect: Patient reports their mood is improving, affect is congruent Suicidality/Homicidality: Patient currently admits to having suicidal ideations denies any homicidal ideations intent or plan. Perceptions: Patient admits to improving auditory hallucinations of conversations. Though content/process: There is no evidence of any delusional thought content and thought process is linear and goal-directed. Memory and concentration: AOX3, grossly intact for the purposes of this session. Judgment and insight: fair, improving Assessment Major depressive disorder, severe, with psychotic features Anxiety disorder unspecified Cannabis use disorder Plan: -Patient continues to meet criteria for inpatient psychiatric admission for symptom stabilization and safety. Patient has signed adult voluntary form and medication consent and was placed in patient's chart. -Medications: We'll continue Geodon 20 mg twice a day for psychosis/mood stabilization. Will continue with Zoloft to 100 mg daily for anxiety/mood. Order placed for an increase to 150 mg starting Wednesday. Continue with trazodone 100 mg daily at bedtime for insomnia and mood. Will continue with Vistaril 25 mg every 6 hours when needed for anxiety. Will increase Inderal to 20 mg three times a day, hold for systolic blood pressure less than 100. Vital signs appear to be stable and blood pressure is within normal limits. -When necessary Geodon for agitation/aggression. -EKG performed on 03/28/2019 showed QTc interval of 430, NSR -NRT -not needed as patient does not smoke -SW on board for discharge planning. Likely discharge next week.
[2019-03-30] MEDS: traZODone HCL 100 MG TAB PO SCH (21:24)
[2019-03-31] MEDS: HYDROCORTISONE 10 MG TAB PO SCH ×3 (08:32→21:47)
[2019-03-31] MEDS: ZIPRASIDONE 20 MG CAP PO SCH ×2 (08:32→21:35)
[2019-03-31] MEDS: FLUDROCORTISONE 0.1 MG TAB PO SCH (08:32)
[2019-03-31] MEDS: PROPRANOLOL 20 MG TAB PO SCH ×3 (08:33→21:35)
[2019-03-31] MEDS ORDERED: SERTRALINE 100 MG TAB PO ONE (09:00)
--- NOTE | 2019-03-31 12:49 | PN ---
PROGRESS NOTE DATE OF SERVICE: 03/31/2019 CHIEF COMPLAINT: The patient had increasing problems with depression since September. He was having an increase in auditory hallucinations with voices telling him to harm himself. He has long-term problems with depression and hallucinations. INTERVAL HISTORY: Patient has been doing fairly well. He had a quiet evening last night. He comes out in the day area. He interacts with others. He has been attending groups. It is noted that yesterday one of his focuses was on frustration with family where he feels they have not been supportive about his mental health issues. He slept fairly well last night. Today he has been up. He continues to be appropriate in his interactions. He has engaged in therapeutic activities. He says that overall voices he has been troubled with seem to be less. He also has less of the restlessness that seem to be a problem for him, possibly related to Rexulti. He feels that his mood is improved. He has a better outlook. He tolerates his psychotropic medications. MENTAL STATUS: Patient sat with a little restlessness. He answered questions appropriately. His thoughts were clear, coherent, and goal directed. He was spontaneous and somewhat interactive. His affect was a little blunted. His mood was quiet though not clearly down or depressed. He did not appear to be significantly distressed. There was no outward evidence of thought disorder. He continues to report some mild auditory hallucinations. Cognition was clear. ASSESSMENT: I will continue the current diagnosis and treatment plan. We will continue to engage the patient in individual and group therapeutic activities. I will continue his psychotropic medications the same namely Zoloft 150 mg a day and Geodon 20 mg twice a day. I reviewed indication for his medications. We discussed potential side effects. I talked about the metabolic concerns related to Geodon. I discussed dosing strategy to help simplify his medications. He may be able to take both the Zoloft and Zyprexa all at one time in the evening time to improve potential for compliance. I also encouraged him to get a medication ramon for his telephone to track compliance. As noted by Dr. Longo, it is anticipated that he would be discharged early in the week. MMODL / LAVONN: [id number] /
[2019-03-31] MEDS: hydrOXYzine PAMOATE 25 MG CAP PO PRN ×2 (15:22→21:35)
[2019-03-31] MEDS: traZODone HCL 100 MG TAB PO SCH (21:35)
[2019-04-01] MEDS: ZIPRASIDONE 20 MG CAP PO SCH ×2 (07:54→21:38)
[2019-04-01] MEDS: PROPRANOLOL 20 MG TAB PO SCH ×3 (07:54→21:40)
[2019-04-01] MEDS: SERTRALINE 100 MG TAB PO SCH (07:54)
[2019-04-01] MEDS: FLUDROCORTISONE 0.1 MG TAB PO SCH (07:55)
[2019-04-01] MEDS: HYDROCORTISONE 10 MG TAB PO SCH ×3 (07:55→21:38)
--- NOTE | 2019-04-01 11:28 | P.PN ---
Progress Note - Text Interval history: The patient is found in the hallway he follows me to an interview room. He indicates that his depression is much better. He is reporting no suicidal thoughts. He states that the auditory hallucinations are much improved. There are no longer demanding and he can only hear now weighs at this point in no intelligible words. He states that his anxiety seems to be a little more heightened today for unspecified reasons. We reviewed his psychotropic medications and his questions were answered. He has been attending groups. He has been eating. Mental status exam: The patient is an overweight male appearing his stated age. He is wearing a mitchell he has eyeglasses. He has a disheveled appearance hygiene appears to be adequate. Speech is fluent spontaneous nonpressured. He denies having any suicidal ideation intent or plan no homicidal ideation intent or plan. As noted in terms of hallucinations he's experiencing "noise" only. He is endorsing no specific delusions. He demonstrates no tangential thinking loose associations or flight of ideas. He demonstrates no verbal or physical aggressiveness he demonstrates no involuntary repetitive movements. Plan: The patient will continue on his current psychotropic medications. His Zoloft as is been titrated. He is encouraged to continue participating in the milieu. Vital signs reviewed. He requires continued psychiatric hospitalization for evaluation and treatment. He is indicating that he starting to stabilize.
[2019-04-01] MEDS: traZODone HCL 100 MG TAB PO SCH (21:38)
[2019-04-02] MEDS: HYDROCORTISONE 10 MG TAB PO SCH ×3 (07:48→20:54)
[2019-04-02] MEDS: FLUDROCORTISONE 0.1 MG TAB PO SCH (07:48)
[2019-04-02] MEDS: PROPRANOLOL 20 MG TAB PO SCH ×3 (07:49→20:55)
[2019-04-02] MEDS: ZIPRASIDONE 20 MG CAP PO SCH ×2 (07:49→20:55)
[2019-04-02] MEDS: SERTRALINE 100 MG TAB PO SCH (07:49)
--- NOTE | 2019-04-02 11:20 | P.PN ---
Progress Note - Text Interval history: The patient's found in the hallway he follows me to an interview room. He indicates his mood is good. He states he had some difficulty sleeping last evening. He has been speaking with his via phone. He states he is hoping he will be discharged soon. He indicates the medicine seems to be working. He is reporting no clear auditory hallucinations he is hearing noise. He denies having any command auditory hallucinations. He denies having any hopeless thoughts. He has been participating in the [employer]. Aura etite is been stable. Although he states he didn't sleep well staff reported he slept 6 hours. Mental status exam: The patient is a male appearing his stated age. He wears a mitchell he is eyeglasses. He is dressed in his own clothing. He is obese. He's pleasant cooperative and easily directed. He remains seated in the chair calmly without any psychomotor agitation. He indicates his mood is improved he denies having any suicidal ideation intent or plan. He is reporting no homicidal ideation intent or plan. He reports no visual hallucinations or any specific delusions. There is no observed evidence of psychosis. He demonstrates no tangential thinking loose associations or flight of ideas. He does not appear hypomanic or manic. He demonstrates no verbal or physical aggre ssiveness he demonstrates no involuntary repetitive movements. Insight and judgment improving. Plan: The patient will continue on his current psychotropic medications. We will augment the trazodone with melatonin. He will continue being monitored for safety. He will continue participating in the [employer]. Vital signs reviewed. He may be appropriate for discharge in the next 1-2 days.
[2019-04-02] MEDS: MELATONIN 5 MG TABLET PO SCH (20:54)
[2019-04-02] MEDS: traZODone HCL 100 MG TAB PO SCH (20:55)
[2019-04-03 06:52] VITALS: TEMP 97.9
[2019-04-03] MEDS: FLUDROCORTISONE 0.1 MG TAB PO SCH (08:44)
[2019-04-03] MEDS: HYDROCORTISONE 10 MG TAB PO SCH ×3 (08:44→21:46)
[2019-04-03] MEDS: ZIPRASIDONE 20 MG CAP PO SCH (08:45)
[2019-04-03] MEDS: SERTRALINE 100 MG TAB PO SCH (08:45)
[2019-04-03] MEDS: PROPRANOLOL 20 MG TAB PO SCH ×3 (08:45→21:46)
[2019-04-03 08:47] VITALS: RESP 18
[2019-04-03] MEDS ORDERED: ZIPRASIDONE 20 MG CAP PO STA (11:16)
--- NOTE | 2019-04-03 11:24 | P.PN ---
Progress Note - Text Progress Note Date: 04/03/19 Interval History: Patient was seen wandering the hallway and was agreeable to pattern chart writer in the offi ce. Patient states that he had a good weekend and claims that his symptoms have been improving. He states that he slept fair last night and has been sleeping throughout the night. Patient admitted to improvement with regards to his mood and anxiety significantly while on the medications. He also stated that today he again does not feel suicidal. He continues to hear minimal voices however states that it's like "background noise" and are not commanding him to do anything. He states that his medications are making him feel calmer and spoke about possible discharge is feeling ready to go home possibly tomorrow. He admits to substantial improvement in his akathisia and restlessness on the propranolol. His energy is fair appetite is good. Patient denies any suicidal or homicidal ideations intent or plan. Patient denies any auditory, visual hallucinations and denies any paranoia or delusions. Patient denies any side effects from the medications and has been compliant with meds. Mental Status Exam: General Appearance: Patient appears to be overweight, stated age is alert, pleasant, and cooperative. Patient has improved eye contact. Behavior: Patient is seated without any agitated behavior. Speech: Patient's speech is fluent and nonpressured. Normal tone. Mood/Affect: Patient reports their mood is improving, affect is congruent Suicidality/Homicidality: Patient currently admits to having suicidal ideations denies any homicidal ideations intent or plan. Perceptions: Patient admits to improving auditory hallucinations of conversations. Though content/process: There is no evidence of any delusional thought content and thought process is linear and goal-directed. Memory and concentration: AOX3, grossly intact for the purposes of this session. Judgment and insight: fair, improving Assessment Major depressive disorder, severe, with psychotic features Anxiety disorder unspecified Cannabis use disorder Plan: -Patient continues to meet criteria for inpatient psychiatric admission for symptom stabilization and safety. Patient has signed adult voluntary form and medication consent and was placed in patient's chart. -Medications: We'll increase Geodon to 40 mg twice a day for psychosis/mood stabilization. Will continue with Zoloft to 150 mg daily for anxiety/mood. Continue with trazodone 100 mg daily at bedtime for insomnia and mood. Will continue with Vistaril 25 mg every 6 hours when needed for anxiety. Will continue with Inderal to 20 mg three times a day, hold for systolic blood pressure less than 100. Vital signs appear to be stable and blood pressure is within normal limits. -When necessary Geodon for agitation/aggression. -EKG performed on 03/28/2019 showed QTc interval of 430, NSR -NRT -not needed as patient does not smoke -SW on board for discharge planning. Likely discharge tomorrow. Patient follows up with [facility].
[2019-04-03] MEDS: traZODone HCL 100 MG TAB PO SCH (21:46)
[2019-04-03] MEDS: ZIPRASIDONE 40 MG CAP PO SCH (21:46)
[2019-04-03] MEDS: MELATONIN 5 MG TABLET PO SCH (21:46)
[2019-04-04] MEDS: FLUDROCORTISONE 0.1 MG TAB PO SCH (08:30)
[2019-04-04] MEDS: PROPRANOLOL 20 MG TAB PO SCH (08:30)
[2019-04-04] MEDS: HYDROCORTISONE 10 MG TAB PO SCH (08:30)
[2019-04-04] MEDS: ZIPRASIDONE 40 MG CAP PO SCH (08:31)
[2019-04-04] MEDS: SERTRALINE 100 MG TAB PO SCH (08:31)
[2019-04-04 08:40] VITALS: BP 118/70; PULSE 74
[2019-04-04] MEDS ORDERED: SERTRALINE 50 MG TAB PO STA (09:32)
--- NOTE | 2019-04-04 09:48 | P.DS ---
Providers Date of admission: 03/27/19 16:42 Expected date of discharge: 04/04/19 Attending physician: John Longo MD Consults: 03/27/19 18:17 Consult Physician Routine Consulting Provider: [facility] Hospitalists Consult Reason/Comments: H&P and medical Do you want consulting provider notified?: Yes Primary care physician: Diamond Sheth - Discharge Diagnosis(es) (1) Major depressive disorder with psychotic features Current Visit: Yes Status: Acute Priority: High (2) Anxiety disorder Current Visit: Yes Status: Acute Priority: Medium (3) Cannabis use disorder, mild, abuse Current Visit: Yes Status: Acute Priority: Medium Hospital Course: Admission HPI: Patient is a 33-year-old male the chronic history of depression who currently lives with his and 3 kids is unemployed and lives in an apartment. Patient presented to the hospital after being seen by [facility] and having medication adjustment which made him feel more depressed and was presenting with suicidal ideations with no plan. Patient was evaluated by instructional writer and was calm and directable however did appear to be somewhat anxious and fidgeting at times. Patient states that he's been dealing with depression "my whole life" referring back to his childhood. He states that it has been progressively gotten severe to the point where he is hearing voices since September. He states that the voices are mood congruent telling him to lemon picker a knife and hurt himself or to overdose on his medications when he is feeling really depressed. He states that at baseline the voices are conversations which she cannot really hear or understand. He states that his anxiety has been increasing to the point where he is thinking about his children getting hurt anywhere to go. When asked about the medication adjustment at [facility] patient states that his first intake appointment he was switched off his attitude 40 mg on to Rexulti and has been on this medication since 2 weeks ago. He states that live to do was giving him akathisia and feeling restless. Patient claims that his suicidal ideation is frequent and he thinks about it daily now and finds himself "not having any emotions about it". Patient admits to decrease in energy and poor sleep and poor concentration. Patient also states that his appetite has been increased. Patient denies any suicidal or homicidal intent or plan however patient does currently have suicidal ideations. At this time patient auditory hallucinations. Patient denies any flight of ideas racing thoughts and increased in goal directed behavior. Patient admits to using marijuana approximately 2 times per month which helps him with his anxiety. He denies any other recreational drugs including cigarettes or alcohol. Hospital course: Upon admission to the unit patient was initially depressed, isolative and having suicidal ideations along with command hallucinations. Patient was however directable and agreeable to commence treatment. Patient got along well with other patients on the unit and followed unit protocol. Patient was compliant with the medications and denied any side effects throughout hospital course. Patient was started on Zoloft and was increased to 200 mg daily for mood/anxiety. Patient was also started on Geodon which was increased to 40 mg twice a day for psychosis/auditory hallucinations. Patient was started on trazodone and increased to 100 mg nightly for insomnia and mood. Patient was also started on propranolol and increased to 20 mg 3 times a day for akathisia/restlessness. Patient's vital signs remained stable and patient was not hypotensive during treatment. Patient spoke of his stressors and engaged in therapy both group and individual. Patient was also seen by medical team for history and physical exam. An EKG was performed on 03/28/2019 which showed a QTc interval of 430, NSR. Throughout the course of the hospitalization patient gradually improved with regards to mood, auditory hallucinations, anxiety/restlessness, sleep and became future oriented with improved insight and judgment. On the day of discharge patient denied any suicidal or homicidal ideations intent or plan denied any visual hallucinations. Patient claimed that his auditory hallucinations had improved dramatically to now only hearing "soft background noise"which patient states is a big improvement from command auditory hallucinations which she presented with. Patient endorsed wanting to live for his kids and family. Patient denied any paranoia and did not endorse any delusions. Patient does have a significant history of substance abuse and was counseled on abstaining from all substances including alcohol and marijuana. Patient was also counseled on the medications and need for regular compliance and was encouraged to follow-up with their outpatient appointment for mental health and also for primary care. Prior to discharge a family meeting will be arranged by social media sr strategy manager to answer any questions and ensure safety upon discharge. Mental status exam: General Appearance: Patient appears to be overweigh, stated age is alert, pleasant, and cooperative. Patient is in no acute distress and has fair hygiene and grooming Behavior: Patient is calmly seated without any agitated behavior. Speech: Patient's speech is fluent and nonpressured. Mood/Affect: Patient reports their mood is "a lot better", affect is congruent and euthymic. Suicidality/Homicidality: Patient denies having any suicidal or homicidal ideation intent or plan. Perceptions: Patient denies any visual hallucinations and states that his auditory hallucinations have improved dramatically to worse now only a "soft background noise". Though content/process: There is no evidence of any delusional thought content and thought process is linear and goal-directed. Memory and concentration: AOX3, grossly intact for the purposes of this session. Can spell "WORLD" backwards correctly. Judgment and insight: fair, improved Impression: Major depressive disorder, severe, with psychotic features Anxiety disorder unspecified Cannabis use disorder Plan: -Continue with discharge today as patient has improved and stabilized psychiatrically and is not currently an imminent threat to himself and/or others. -Continue medications: Geodon 40 mg twice a day for psychosis/hallucinations, Zoloft 200 mg daily for mood/anxiety, propranolol 20 mg 3 times a day for akathisia/restlessness, trazodone 100 mg daily at bedtime for insomnia and mood. -Patient was counseled on the need for medication compliance and appropriate follow-up at mental health and also primary care for medical issues. Patient verbalized understanding and agreed. -Social work to arrange for and conduct family meeting to ensure safety upon discharge and answer any questions/concerns. Social work also to arrange for patients follow up appointments at [facility] along with follow up with primary care provider. -Patient counseled on abstaining from recreational drugs and marijuana and alcohol. Was informed/educated on the adverse effects on their physical and mental health. Patient agreed and verbally understood. -Patient was instructed to return to the hospital or seek immediate medical care if their psychiatric or medical systems do worsen or reoccur. Allergies Allergy/AdvReac Type Severity Reaction Status Date / Time latex Allergy burning, Verified 03/27/19 17:46 itchy skin Laboratory Results WBC 6.8 k/uL (3.8-10.6) 03/28/19 07:06 RBC 4.76 m/uL (4.30-5.90) 03/28/19 07:06 Hgb 14.2 gm/dL (13.0-17.5) 03/28/19 07:06 Hct 41.2 % (39.0-53.0) 03/28/19 07:06 MCV 86.7 fL (80.0-100.0) 03/28/19 07:06 MCH 29.8 pg (25.0-35.0) 03/28/19 07:06 MCHC 34.4 g/dL (31.0-37.0) 03/28/19 07:06 RDW 12.7 % (11.5-15.5) 03/28/19 07:06 Plt Count 307 k/uL (150-450) 03/28/19 07:06 Neutrophils % 57 % 03/28/19 07:06 Lymphocytes % 35 % 03/28/19 07:06 Monocytes % 5 % 03/28/19 07:06 Eosinophils % 2 % 03/28/19 07:06 Basophils % 0 % 03/28/19 07:06 Neutrophils # 3.9 k/uL (1.3-7.7) 03/28/19 07:06 Lymphocytes # 2.4 k/uL (1.0-4.8) 03/28/19 07:06 Monocytes # 0.3 k/uL (0-1.0) 03/28/19 07:06 Eosinophils # 0.1 k/uL (0-0.7) 03/28/19 07:06 Basophils # 0.0 k/uL (0-0.2) 03/28/19 07:06 Sodium 141 mmol/L (137-145) 03/28/19 07:06 Potassium 4.0 mmol/L (3.5-5.1) 03/28/19 07:06 Chloride 103 mmol/L (98-107) 03/28/19 07:06 Carbon Dioxide 28 mmol/L (22-30) 03/28/19 07:06 Anion Gap 10 mmol/L 03/28/19 07:06 BUN 14 mg/dL (9-20) 03/28/19 07:06 Creatinine 0.84 mg/dL (0.66-1.25) 03/28/19 07:06 Est GFR (CKD-EPI)AfAm >90 (>60 ml/min/1.73 sqM) 03/28/19 07:06 Est GFR (CKD-EPI)NonAf >90 (>60 ml/min/1.73 sqM) 03/28/19 07:06 Glucose 87 mg/dL (74-99) 03/28/19 07:[address] Glu mg/dL 94 03/28/19 07:06 Hemoglobin A1c 4.9 % (4.0-6.0) 03/28/19 07:06 Calcium 9.4 mg/dL (8.4-10.2) 03/28/19 07:06 Total Bilirubin 0.7 mg/dL (0.2-1.3) 03/28/19 07:06 AST 16 U/L (17-59) L 03/28/19 07:06 ALT 19 U/L (21-72) L 03/28/19 07:06 Alkaline Phosphatase 37 U/L (38-126) L 03/28/19 07:06 Total Protein 7.4 g/dL (6.3-8.2) 03/28/19 07:06 Albumin 4.2 g/dL (3.5-5.0) 03/28/19 07:06 Triglycerides 127 mg/dL (<150) 03/28/19 07:06 Cholesterol 189 mg/dL (<200) 03/28/19 07:06 LDL Cholesterol, Calc 95 mg/dL (0-99) 03/28/19 07:06 HDL Cholesterol 69 mg/dL (40-60) H 03/28/19 07:06 TSH 2.770 mIU/L (0.465-4.680) 03/28/19 07:06 Urine Color Light Yellow 03/28/19 16:25 Urine Appearance Clear (Clear) 03/28/19 16:25 Urine pH 6.0 (5.0-8.0) 03/28/19 16:25 Ur Specific [place] 1.007 (1.001-1.035) 03/28/19 16:25 Urine Protein Negative (Negative) 03/28/19 16:25 Urine Glucose (UA) Negative (Negative) 03/28/19 16:25 Urine Ketones Negative (Negative) 03/28/19 16:25 Urine Blood Small (Negative) H 03/28/19 16:25 Urine Nitrite Negative (Negative) 03/28/19 16:25 Urine Bilirubin Negative (Negative) 03/28/19 16:25 Urine Urobilinogen <2.0 mg/dL (<2.0) 03/28/19 16:25 Ur Leukocyte Esterase Negative (Negative) 03/28/19 16:25 Urine RBC 3 /hpf (0-5) 03/28/19 16:25 Urine Mucus Rare /hpf (None) H 03/28/19 16:25 Urine Opiates Screen Not Detected (NotDetected) 03/27/19 15:54 Ur Oxycodone Screen Not Detected (NotDetected) 03/27/19 15:54 Urine Methadone Screen Not Detected (NotDetected) 03/27/19 15:54 Ur Propoxyphene Screen Not Detected (NotDetected) 03/27/19 15:54 Ur Barbiturates Screen Not Detected (NotDetected) 03/27/19 15:54 U Tricyclic Antidepress Not Detected (NotDetected) 03/27/19 15:54 Ur Phencyclidine Scrn Not Detected (NotDetected) 03/27/19 15:54 Ur Amphetamines Screen Not Detected (NotDetected) 03/27/19 15:54 U Methamphetamines Scrn Not Detected (NotDetected) 03/27/19 15:54 U Benzodiazepines Scrn Not Detected (NotDetected) 03/27/19 15:54 Urine Cocaine Screen Not Detected (NotDetected) 03/27/19 15:54 U Marijuana (THC) Screen Detected (NotDetected) H 03/27/19 15:54 Vital Signs Temp 97.9 F 04/04/19 06:51 Pulse 74 04/04/19 08:15 Resp 18 04/04/19 08:15 BP 118/70 04/04/19 08:15 Pulse Ox 94 L 03/27/19 17:23 Patient Condition at Discharge: Stable Plan - Discharge Summary Discharge Rx Participant: No New Discharge Prescriptions: New traZODone HCL [Desyrel] 100 mg PO HS 28 Days tab Ziprasidone [Geodon] 40 mg PO BID 28 Days cap Propranolol [Inderal] 20 mg PO TID 28 Days tab Melatonin 5 mg PO HS 28 Days tablet Sertraline [Zoloft] 200 mg PO DAILY 28 Days tab Continue Hydrocortisone [Cortef] 20 mg PO QAM Fludrocortisone [Florinef] 0.1 mg PO DAILY Hydrocortisone [Cortef] 10 mg PO BID@1200,2100 Discontinued Vortioxetine Hydrobromide [Trintellix] 10 mg PO DAILY Benztropine Mesylate [Cogentin] 1 mg PO BID traZODone HCL 25 - 100 mg PO HS Zolpidem [Ambien] 10 mg PO HS PRN PRN Reason: Insomnia Brexpiprazole [Rexulti] 3 mg PO DAILY Discharge Medication List Fludrocortisone [Florinef] 0.1 mg PO DAILY 04/24/14 [History] Hydrocortisone [Cortef] 20 mg PO QAM 04/24/14 [History] Hydrocortisone [Cortef] 10 mg PO BID@1200,2100 12/13/18 [History] Melatonin 5 mg PO HS 28 Days tablet 04/04/19 [Rx] Propranolol [Inderal] 20 mg PO TID 28 Days tab 04/04/19 [Rx] Sertraline [Zoloft] 200 mg PO DAILY 28 Days tab 04/04/19 [Rx] Ziprasidone [Geodon] 40 mg PO BID 28 Days cap 04/04/19 [Rx] traZODone HCL [Desyrel] 100 mg PO HS 28 Days tab 04/04/19 [Rx] Follow up Appointment(s)/Referral(s): [facility] [Outside] - 04/05/19 10:30 am (04-05-19 @ 10:30 with Jovanni Maria 04-05-19 @ 11:30 with Yudith Ye) Diamond Sheth DO [Primary Care Provider] - 1-2 days Discharge Disposition: HOME SELF-CARE
[2019-04-05] MEDS ORDERED: SERTRALINE 100 MG TAB PO SCH (09:00)
== END 2019-04-04 11:05 | disposition home or self-care (01) | DRG 885 ==
LOC: EC 13:11 → 3MHU 16:42
PROVIDERS: ADMIT Psychiatry & Neurology Psychiatry; ATTEND Psychiatry & Neurology Psychiatry
DX: F32.3 Major depressive disorder, single episode, severe with psychotic features (principal); R45.851 Suicidal ideations; F12.99 Cannabis use, unspecified with unspecified cannabis-induced disorder; F41.9 Anxiety disorder, unspecified; G47.00 Insomnia, unspecified; Z79.52 Long term (current) use of systemic steroids; Z79.899 Other long term (current) drug therapy; Z81.8 Family history of other mental and behavioral disorders; Z83.3 Family history of diabetes mellitus; Z91.040 Latex allergy status; Z91.5 Personal history of self-harm
CPT/HCPCS: 80053; 80061; 80306; 81001; 82075; 83036; 84443; 85025; 93005; 99285

== ENCOUNTER 2021-03-07 11:02 | Emergency (ER) | payer MEDICARE, OTHER ==
--- NOTE | 2021-03-07 11:29 | ED ---
General Adult HPI - General Stated complaint: nausea/vomiting/weak Time Seen by Provider: 03/07/21 11:28 Source: patient, RN notes reviewed Mode of arrival: ambulatory Limitations: no limitations - History of Present Illness Initial comments: This a 35-year-old male presents emergency Department with chief complaint of nausea vomiting weakness. Patient states symptoms started earlier this week after receiving his second COVID-19 vaccination. Patient states that he feels dehydrated, unable to keep anything down, very nauseated. Patient states felt like it had a fever. Patient is concerned that he is dehydrated concerned that he has congenital adrenal hyperplasia and states his been not able take his steroids. Patient states she's had some shortness breath no chest pain. - Related Data Home Medications Medication Instructions Recorded Confirmed Fludrocortisone [Florinef] 0.1 mg PO DAILY 04/24/14 03/07/21 Hydrocortisone [Cortef] 20 mg PO DAILY 04/24/14 03/07/21 Hydrocortisone [Cortef] 10 mg PO BID@1200,2100 12/13/18 03/07/21 Brexpiprazole [Rexulti] 4 mg PO DAILY 03/07/21 03/07/21 Vortioxetine Hydrobromide 20 mg PO HS 03/07/21 03/07/21 [Trintellix] busPIRone HCL 15 mg PO BID PRN 03/07/21 03/07/21 traZODone HCL [Desyrel] 100 mg PO HS PRN 03/07/21 03/07/21 Previous Rx's Medication Instructions Recorded Ondansetron Odt [Zofran Odt] 4 mg PO Q8HR PRN #14 tab 03/07/21 Allergies Allergy/AdvReac Type Severity Reaction Status Date / Time latex Allergy burning, Verified 03/07/21 13:15 itchy skin Review of Systems ROS Statement: Those systems with pertinent positive or pertinent negative responses have been documented in the HPI. ROS Other: All systems not noted in ROS Statement are negative. Past Medical History Additional Past Medical History / Comment(s): congenital adrenial hyperplasia, migraines History of Any Multi-Drug Resistant Organisms: None Reported Past Surgical History: Bariatric Surgery Additional Past Surgical History / Comment(s): lap band, retina implant, rt eye cataract Past Anesthesia/Blood Transfusion Reactions: No Reported Reaction Past Psychological History: Anxiety, Depression, Schizoaffective Disorder Past Alcohol Use History: None Reported Past Drug Use History: Marijuana - Past Family History Mother Additional Family Medical History / Comment(s): Anxiety Father Family Medical History: Diabetes Mellitus Additional Family Medical History / Comment(s): Depression Course Vital Signs 03/07/21 03/07/21 11:25 14:06 Temperature 98.0 F Pulse Rate 137 H 93 Respiratory 22 18 Rate Blood Pressure 131/97 141/94 O2 Sat by Pulse 99 100 Oximetry Medical Decision Making - Medical Decision Making 35-year-old presents for nausea vomiting but aches. Patient will be acutely dehydrated. Patient was given 2 L of fluids, given hydrocortisone, Zofran. Patient states he feels improved is comfortable being discharged with close follow-up return parameters were discussed. Patient did have mild metabolic acidosis secondary to dehydration. - Lab Data Result diagrams: 03/07/21 12:11 03/07/21 12:11 Lab Results 03/07/21 03/07/21 03/07/21 Range/Units 11:49 12:11 12:11 WBC 7.9 (3.8-10.6) k/uL RBC 6.03 H (4.30-5.90) m/uL Hgb 19.0 H (13.0-17.5) gm/dL Hct 53.3 H (39.0-53.0) % MCV 88.5 (80.0-100.0) fL MCH 31.5 (25.0-35.0) pg MCHC 35.6 (31.0-37.0) g/dL RDW 12.5 (11.5-15.5) % Plt Count 314 (150-450) k/uL MPV 8.6 Neutrophils % 72 % Lymphocytes % 16 % Monocytes % 7 % Eosinophils % 2 % Basophils % 0 % Neutrophils # 5.7 (1.3-7.7) k/uL Lymphocytes # 1.2 (1.0-4.8) k/uL Monocytes # 0.6 (0-1.0) k/uL Eosinophils # 0.1 (0-0.7) k/uL Basophils # 0.0 (0-0.2) k/uL Sodium (137-145) mmol/L Potassium (3.5-5.1) mmol/L Chloride (98-107) mmol/L Carbon Dioxide (22-30) mmol/L Anion Gap mmol/L BUN (9-20) mg/dL Creatinine (0.66-1.25) mg/dL Est GFR (CKD-EPI)AfAm (>60 ml/min/1.73 sqM) Est GFR (CKD-EPI)NonAf (>60 ml/min/1.73 sqM) Glucose (74-99) mg/dL Plasma Lactic Acid [place] (0.7-2.0) mmol/L Calcium (8.4-10.2) mg/dL Total Bilirubin (0.2-1.3) mg/dL AST (17-59) U/L ALT (4-49) U/L Alkaline Phosphatase (38-126) U/L Troponin I (0.000-0.034) ng/mL Total Protein (6.3-8.2) g/dL Albumin (3.5-5.0) g/dL Amylase (30-110) U/L Lipase (23-300) U/L Urine Color Yellow Urine Appearance Cloudy (Clear) Urine pH 5.5 (5.0-8.0) Ur Specific [place] 1.020 (1.001-1.035) Urine Protein 1+ H (Negative) Urine Glucose (UA) Negative (Negative) Urine Ketones 3+ H (Negative) Urine Blood Moderate H (Negative) Urine Nitrite Negative (Negative) Urine Bilirubin Negative (Negative) Urine Urobilinogen 2.0 (<2.0) mg/dL Ur Leukocyte Esterase Small H (Negative) Urine RBC 1 (0-5) /hpf Urine WBC 8 H (0-5) /hpf Ur Squamous Epith Cells <1 (0-4) /hpf Hyaline Casts 21 H (0-2) /lpf Urine Mucus Moderate H (None) /hpf Coronavirus (PCR) Not Detected (Not Detectd) 03/07/21 03/07/21 03/07/21 Range/Units 12:11 12:11 12:11 WBC (3.8-10.6) k/uL RBC (4.30-5.90) m/uL Hgb (13.0-17.5) gm/dL Hct (39.0-53.0) % MCV (80.0-100.0) fL MCH (25.0-35.0) pg MCHC (31.0-37.0) g/dL RDW (11.5-15.5) % Plt Count (150-450) k/uL MPV Neutrophils % % Lymphocytes % % Monocytes % % Eosinophils % % Basophils % % Neutrophils # (1.3-7.7) k/uL Lymphocytes # (1.0-4.8) k/uL Monocytes # (0-1.0) k/uL Eosinophils # (0-0.7) k/uL Basophils # (0-0.2) k/uL Sodium 133 L (137-145) mmol/L Potassium 4.1 (3.5-5.1) mmol/L Chloride 100 (98-107) mmol/L Carbon Dioxide 14 L (22-30) mmol/L Anion Gap 19 mmol/L BUN 22 H (9-20) mg/dL Creatinine 1.23 (0.66-1.25) mg/dL Est GFR (CKD-EPI)AfAm 87 (>60 ml/min/1.73 sqM) Est GFR (CKD-EPI)NonAf 76 (>60 ml/min/1.73 sqM) Glucose 119 H (74-99) mg/dL Plasma Lactic Acid [place] 1.1 (0.7-2.0) mmol/L Calcium 10.3 H (8.4-10.2) mg/dL Total Bilirubin 1.0 (0.2-1.3) mg/dL AST 30 (17-59) U/L ALT 28 (4-49) U/L Alkaline Phosphatase 56 (38-126) U/L Troponin I <0.012 (0.000-0.034) ng/mL Total Protein 8.6 H (6.3-8.2) g/dL Albumin 5.0 (3.5-5.0) g/dL Amylase 51 (30-110) U/L Lipase 51 (23-300) U/L Urine Color Urine Appearance (Clear) Urine pH (5.0-8.0) Ur Specific [place] (1.001-1.035) Urine Protein (Negative) Urine Glucose (UA) (Negative) Urine Ketones (Negative) Urine Blood (Negative) Urine Nitrite (Negative) Urine Bilirubin (Negative) Urine Urobilinogen (<2.0) mg/dL Ur Leukocyte Esterase (Negative) Urine RBC (0-5) /hpf Urine WBC (0-5) /hpf Ur Squamous Epith Cells (0-4) /hpf Hyaline Casts (0-2) /lpf Urine Mucus (None) /hpf Coronavirus (PCR) (Not Detectd) Disposition Clinical Impression: Dehydration, Nausea & vomiting Disposition: HOME SELF-CARE Condition: Stable Instructions (If sedation given, give patient instructions): Dehydration (ED) Additional Instructions: Please return to the Emergency Department if symptoms worsen or any other concerns. Prescriptions: Ondansetron Odt [Zofran Odt] 4 mg PO Q8HR PRN #14 tab PRN Reason: Nausea Is patient prescribed a controlled substance at d/c from ED?: No Referrals: Diamond Sheth DO [Primary Care Provider] - 1-2 days Time of Disposition: 15:25
[2021-03-07] MEDS ORDERED: ONDANSETRON 4 MG/2 ML VIAL IVP STA (11:33)
[2021-03-07] MEDS ORDERED: HYDROCORTISONE SUCCINATE 100 MG/2 ML VIAL IV STA (11:33)
[2021-03-07] MEDS ORDERED: SODIUM CHLORIDE 0.9% 2,000 ML IV ONE (11:33)
[2021-03-07 12:47] LABS: Basophils % (A) 0 %; Eosinophils # (A) 0.1 k/uL (0-0.7); Eosinophils % (A) 2 %; HCT 53.3 % (39.0-53.0); Lymphocytes # (A) 1.2 k/uL (1.0-4.8); Lymphocytes % (A) 16 %; MCH 31.5 pg (25.0-35.0); MCHC 35.6 g/dL (31.0-37.0); MCV 88.5 fL (80.0-100.0); Mean Platelet Volume 8.6; Monocytes # (A) 0.6 k/uL (0-1.0); Monocytes % (A) 7 %; Neutrophils # (A) 5.7 k/uL (1.3-7.7); Neutrophils % (A) 72 %; Platelet Count 314 k/uL (150-450); RBC 6.03 m/uL (4.30-5.90); RDW 12.5 % (11.5-15.5); WBC 7.9 k/uL (3.8-10.6)
[2021-03-07] MEDS ORDERED: diphenhydrAMINE 50 MG/ML 1 ML VIAL IVP STA (12:53)
[2021-03-07] MEDS ORDERED: METOCLOPRAMIDE 5 MG/ML 2 ML VIAL IVP STA (12:53)
[2021-03-07 12:58] LABS: Calcium 10.3 mg/dL (8.4-10.2); Potassium 4.1 mmol/L (3.5-5.1); Total Protein 8.6 g/dL (6.3-8.2)
[2021-03-07 14:07] VITALS: RESP 18
--- NOTE | 2021-03-07 14:11 | XR ---
EXAMINATION TYPE: XR chest 2V DATE OF EXAM: 03/07/2021 COMPARISON: NONE HISTORY: Chest pain TECHNIQUE: Frontal and lateral views of the chest are obtained. FINDINGS: There is no focal air space opacity. No evidence for pneumothorax. No pleural effusion. The cardiac silhouette size is within normal limits. The osseous structures are grossly intact. IMPRESSION: 1. No acute cardiopulmonary process.
[2021-03-07 14:50] LABS: Appearance,Urine Cloudy (Clear); Bilirubin,Urine Negative (Negative); Blood,Urine Moderate (Negative); Color,Urine Yellow; Glucose,Urine (UA) Negative (Negative); Hyaline Casts,Urine 21 /lpf (0-2); Ketones,Urine 3+ (Negative); Leukocyte Esterase,Urine Small (Negative); Mucus,Urine Moderate /hpf; Nitrite,Urine Negative (Negative); PH, Urine 5.5 (5.0-8.0); Protein,Urine 1+ (Negative); RBC,Urine 1 /hpf (0-5); Squamous Epithelial Cell,Urine <1 /hpf (0-4); WBC,Urine 8 /hpf (0-5)
[2021-03-07 15:31] VITALS: BP 137/83; PULSE 92; TEMP 98
== END 2021-03-07 15:28 | disposition home or self-care (01) ==
LOC: EC 11:02
DX: E86.0 Dehydration (principal); R11.2 Nausea with vomiting, unspecified; Z20.822 Contact with and (suspected) exposure to COVID-19; Z91.040 Latex allergy status
CPT/HCPCS: 36415; 93005; 80053; 82150; 83605; 83690; 84484; 85025; 81001; 87635; 71046; 99284; 96374; 96375; 96361; J1200; J2765; J1720; J2405

== ENCOUNTER 2023-03-29 19:35 | Observation (INO) | payer MEDICARE, OTHER ==
--- NOTE | 2023-03-29 20:18 | ED ---
General Adult HPI - General Source: patient, RN notes reviewed Mode of arrival: ambulatory Limitations: no limitations <Damaris Vincent - Last Filed: 03/29/23 20:16> - General Source: RN notes reviewed, old records reviewed Limitations: no limitations - History of Present Illness -: days(s) Location: abdomen Radiation: abdomen Severity scale (1-10): 7 Quality: aching Consistency: constant Improves with: none Worsens with: none Associated Symptoms: loss of appetite, nausea/vomiting, weakness Treatments Prior to Arrival: none <Doug hO - Last Filed: 03/30/23 01:06> - General Chief complaint: Nausea/Vomiting/Diarrhea Stated complaint: vomiting Time Seen by Provider: 03/29/23 20:16 - History of Present Illness Initial comments: Patient is a 37 year old male who presents to the emergency department for vomiting. Patient has had vomiting since Wednesday unable to hold his steroids down. He takes steroids for congenital adrenal hyperplasia. He denies abdominal pain, change in bowel habits, urinary symptoms. He denies fever and chills. Denies upper respiratory symptoms. (Damaris Vincent) This is a 37-year-old male to the emergency department for evaluation of persistent nausea vomiting with history of congenital adrenal hyperplasia. Persistent nausea vomiting weakness lightheadedness and dizziness here in the emergency room. (Doug Oh) - Related Data Home Medications Medication Instructions Recorded Confirmed Fludrocortisone [Florinef] 0.1 mg PO DAILY 04/24/14 03/29/23 Hydrocortisone [Cortef] 20 mg PO DAILY 04/24/14 03/29/23 Hydrocortisone [Cortef] 10 mg PO BID@1200,2100 12/13/18 03/29/23 Allergies Allergy/AdvReac Type Severity Reaction Status Date / Time latex Allergy burning, Verified 03/29/23 22:35 itchy skin Review of Systems ROS Other: All systems not noted in ROS Statement are negative. <Damaris Vincent - Last Filed: 03/29/23 20:16> ROS Other: All systems not noted in ROS Statement are negative. <Doug Oh - Last Filed: 03/30/23 01:06> ROS Statement: Those systems with pertinent positive or pertinent negative responses have been documented in the HPI. Past Medical History Additional Past Medical History / Comment(s): congenital adrenial hyperplasia, migraines History of Any Multi-Drug Resistant Organisms: None Reported Past Surgical History: Bariatric Surgery Additional Past Surgical History / Comment(s): lap band, retina implant, rt eye cataract Past Anesthesia/Blood Transfusion Reactions: No Reported Reaction Past Psychological History: Anxiety, Depression, Schizoaffective Disorder Smoking Status: Never smoker Past Alcohol Use History: Occasional Past Drug Use History: Marijuana - Past Family History Mother Additional Family Medical History / Comment(s): Anxiety Father Family Medical History: Diabetes Mellitus Additional Family Medical History / Comment(s): Depression <MelisaDamaris - Last Filed: 03/29/23 20:16> General Exam Limitations: no limitations <MelisaDamaris - Last Filed: 03/29/23 20:16> General appearance: alert, in no apparent distress Head exam: Present: atraumatic, normocephalic, normal inspection Eye exam: Present: normal appearance, PERRL, EOMI. Absent: scleral icterus, conjunctival injection, periorbital swelling ENT exam: Present: normal exam, mucous membranes moist Neck exam: Present: normal inspection. Absent: tenderness, meningismus, lymphadenopathy Respiratory exam: Present: normal lung sounds bilaterally. Absent: respiratory distress, wheezes, rales, rhonchi, stridor Cardiovascular Exam: Present: regular rate, normal rhythm, normal heart sounds. Absent: systolic murmur, diastolic murmur, rubs, gallop, clicks GI/Abdominal exam: Present: soft, normal bowel sounds. Absent: distended, tenderness, guarding, rebound, rigid Extremities exam: Present: normal inspection, full ROM, normal capillary refill. Absent: tenderness, pedal edema, joint swelling, calf tenderness Back exam: Present: normal inspection Neurological exam: Present: alert, oriented X3, CN II-XII intact Psychiatric exam: Present: normal affect, normal mood Skin exam: Present: warm, dry, intact, normal color. Absent: rash <Doug Oh - Last Filed: 03/30/23 01:06> - General Exam Comments Initial Comments: Visual Physical Exam Vital signs reviewed General: Well-appearing, nontoxic, no acute distress. Head: Normocephalic, atraumatic Eyes: PERRLA, EOMI ENT: Airway patent Chest: Nonlabored breathing Skin: No visual rash, normal skin tone Neuro: Alert and oriented 3 Musculoskeletal: No gross abnormalities (MelisaMichaelDamaris) Course <Doug Oh - Last Filed: 03/30/23 01:06> Vital Signs 03/29/23 03/29/23 19:56 22:45 Temperature 98 F 98.5 F Pulse Rate 69 78 Respiratory 18 16 Rate Blood Pressure 139/91 138/84 O2 Sat by Pulse 99 95 Oximetry - Reevaluation(s) Reevaluation #1: 03/30/23 01:05 Medical record is reviewed (Doug Oh) Reevaluation #2: 03/30/23 01:05 Patient symptoms are relatively unchanged (Doug Oh) Reevaluation #3: 03/30/23 01:05 Patient informed results questions answered (Doug Oh) Reevaluation #4: 03/30/23 01:05 Was pt. sent in by a medical professional or institution (Dr. PA, SOLUTION DEVELOPER, urgent care, hospital, or fpc...) When possible be specific @ -no Did you speak to anyone other than the patient for history (EMS, parent, family, police, friend...)? What history was obtained from this source @ -no Did you review nursing and triage notes (agree or disagree)? Why? @ -agree Are old charts reviewed (outside hosp., previous admission, EMS record, old EKG, old radiological studies, urgent care reports/EKG's, fpc records)? Report findings @ -yes Differential Diagnosis (chest pain, altered mental status, abdominal pain women, abdominal pain men, vaginal bleeding, weakness, fever, dyspnea, syncope, headache, dizziness, GI bleed, back pain, seizure, CVA, palpatations, mental health, musculoskeletal)? @ -prior EKG interpreted by me (3pts min.). @ -yes X-rays interpreted by me (1pt min.). @ -yes CT interpreted by me (1pt min.). @ -no U/S interpreted by me (1pt. min.). @ -no What testing was considered but not performed or refused? (CT, X-rays, U/S, labs)? Why? @ -none What meds were considered but not given or refused? Why? @ -none Did you discuss the management of the patient with other professionals (professionals i.e. Dr., PA, SOLUTION DEVELOPER, lab, RT, psych nurse, social media marketer, retort press operator, teacher, ict customer support officer, case management associate)? Give summary @ -no Was smoking cessation discussed for >3mins.? @ -no Was critical care preformed (if so, how long)? @ -no Were there social determinants of health that impacted care today? How? (Homelessness, low income, unemployed, alcoholism, drug addiction, transportati on, low edu. Level, literacy, decrease access to med. care, fpc, rehab)? @ -none Was there de-escalation of care discussed even if they declined (Discuss DNR or withdrawal of care, Hospice)? DNR status @ -no What co-morbidities impacted this encounter? (DM, HTN, Smoking, COPD, CAD, Cancer, CVA, ARF, Chemo, Hep., AIDS, mental health diagnosis, sleep apnea, morbid obesity)? @ -none Was patient admitted / discharged? Hospital course, mention meds given and route, prescriptions, significant lab abnormalities, going to OR and other pertinent info. @ - Undiagnosed new problem with uncertain prognosis? @ -no Drug Therapy requiring intensive monitoring for toxicity (Heparin, Nitro, Insulin, Cardizem)? @ -no Were any procedures done? @ -no Diagnosis/symptom? @ - Acute, or Chronic, or Acute on Chronic? @ -Acute Uncomplicated (without systemic symptoms) or Complicated (systemic symptoms)? @ -Complicated Side effects of treatment? @ -no Exacerbation, Progression, or Severe Exacerbation? @ -exacerbation Poses a threat to life or bodily function? How? (Chest pain, USA, AR, pneumonia, PE, COPD, DKA, ARF, appy, cholecystitis, CVA, Diverticulitis, Homicidal, Suicidal, threat to staff... and all critical care pts) @ -yes (Doug Oh) - Consultations Consultation #1: Spoke with [facility] were agrees to admit the patient (Doug Oh) Medical Decision Making <Damaris Vincent - Last Filed: 03/29/23 20:16> - Lab Data Result diagrams: 03/29/23 21:30 03/29/23 21:30 <Doug Oh - Last Filed: 03/30/23 01:06> - Medical Decision Making I performed the QuickNote portion of this chart - Damaris Vincent PA-C (Damaris Vincent) 37 male will be admitted for persistent nausea vomiting, control. IV hydration IV steroids (Doug Oh) - Lab Data Lab Results 03/29/23 03/29/23 03/29/23 Range/Units 20:17 21:30 21:30 WBC 7.5 (3.8-10.6) k/uL RBC 5.10 (4.30-5.90) m/uL Hgb 16.1 (13.0-17.5) gm/dL Hct 47.3 (39.0-53.0) % MCV 92.7 (80.0-100.0) fL MCH 31.5 (25.0-35.0) pg MCHC 34.0 (31.0-37.0) g/dL RDW 12.8 (11.5-15.5) % Plt Count 284 (150-450) k/uL MPV 8.0 Neutrophils % 61 % Lymphocytes % 29 % Monocytes % 5 % Eosinophils % 3 % Basophils % 0 % Neutrophils # 4.6 (1.3-7.7) k/uL Lymphocytes # 2.2 (1.0-4.8) k/uL Monocytes # 0.4 (0-1.0) k/uL Eosinophils # 0.3 (0-0.7) k/uL Basophils # 0.0 (0-0.2) k/uL Sodium (137-145) mmol/L Potassium (3.5-5.1) mmol/L Chloride (98-107) mmol/L Carbon Dioxide (22-30) mmol/L Anion Gap mmol/L BUN (9-20) mg/dL Creatinine (0.66-1.25) mg/dL Est GFR (CKD-EPI)AfAm (>60 ml/min/1.73 sqM) Est GFR (CKD-EPI)NonAf (>60 ml/min/1.73 sqM) Glucose (74-99) mg/dL Plasma Lactic Acid Clemente (0.7-2.0) mmol/L Calcium (8.4-10.2) mg/dL Total Bilirubin (0.2-1.3) mg/dL AST (17-59) U/L ALT (4-49) U/L Alkaline Phosphatase (38-126) U/L Total Protein (6.3-8.2) g/dL Albumin (3.5-5.0) g/dL Urine Color Yellow Urine Appearance Clear (Clear) Urine pH 6.0 (5.0-8.0) Ur Specific Flushing 1.018 (1.001-1.035) Urine Protein Trace H (Negative) Urine Glucose (UA) Negative (Negative) Urine Ketones Negative (Negative) Urine Blood Moderate H (Negative) Urine Nitrite Negative (Negative) Urine Bilirubin Negative (Negative) Urine Urobilinogen <2.0 (<2.0) mg/dL Ur Leukocyte Esterase Negative (Negative) Urine RBC 15 H (0-5) /hpf Urine WBC 1 (0-5) /hpf Ur Squamous Epith Cells <1 (0-4) /hpf Urine Bacteria Rare H (None) /hpf Urine Mucus Few H (None) /hpf Influenza Type A (PCR) Not Detected (Not Detectd) Influenza Type B (PCR) Not Detected (Not Detectd) RSV (PCR) Not Detected (Not Detectd) SARS-CoV-2 (PCR) Not Detected (Not Detectd) 03/29/23 03/29/23 Range/Units 21:30 21:30 WBC (3.8-10.6) k/uL RBC (4.30-5.90) m/uL Hgb (13.0-17.5) gm/dL Hct (39.0-53.0) % MCV (80.0-100.0) fL MCH (25.0-35.0) pg MCHC (31.0-37.0) g/dL RDW (11.5-15.5) % Plt Count (150-450) k/uL MPV Neutrophils % % Lymphocytes % % Monocytes % % Eosinophils % % Basophils % % Neutrophils # (1.3-7.7) k/uL Lymphocytes # (1.0-4.8) k/uL Monocytes # (0-1.0) k/uL Eosinophils # (0-0.7) k/uL Basophils # (0-0.2) k/uL Sodium 138 (137-145) mmol/L Potassium 4.1 (3.5-5.1) mmol/L Chloride 103 (98-107) mmol/L Carbon Dioxide 26 (22-30) mmol/L Anion Gap 9 mmol/L BUN 12 (9-20) mg/dL Creatinine 0.88 (0.66-1.25) mg/dL Est GFR (CKD-EPI)AfAm >90 (>60 ml/min/1.73 sqM) Est GFR (CKD-EPI)NonAf >90 (>60 ml/min/1.73 sqM) Glucose 89 (74-99) mg/dL Plasma Lactic Acid Clemente 1.0 (0.7-2.0) mmol/L Calcium 9.6 (8.4-10.2) mg/dL Total Bilirubin 0.7 (0.2-1.3) mg/dL AST 18 (17-59) U/L ALT 17 (4-49) U/L Alkaline Phosphatase 45 (38-126) U/L Total Protein 7.7 (6.3-8.2) g/dL Albumin 4.7 (3.5-5.0) g/dL Urine Color Urine Appearance (Clear) Urine pH (5.0-8.0) Ur Specific Flushing (1.001-1.035) Urine Protein (Negative) Urine Glucose (UA) (Negative) Urine Ketones (Negative) Urine Blood (Negative) Urine Nitrite (Negative) Urine Bilirubin (Negative) Urine Urobilinogen (<2.0) mg/dL Ur Leukocyte Esterase (Negative) Urine RBC (0-5) /hpf Urine WBC (0-5) /hpf Ur Squamous Epith Cells (0-4) /hpf Urine Bacteria (None) /hpf Urine Mucus (None) /hpf Influenza Type A (PCR) (Not Detectd) Influenza Type B (PCR) (Not Detectd) RSV (PCR) (Not Detectd) SARS-CoV-2 (PCR) (Not Detectd) Disposition <Damaris Vincent - Last Filed: 03/29/23 20:16> Is patient prescribed a controlled substance at d/c from ED?: No Time of Disposition: 23:15 <Doug Oh - Last Filed: 03/30/23 01:06> Clinical Impression: Anxiety disorder, Dehydration, Adrenal insufficiency, Nausea & vomiting Disposition: ADMITTED IP TO THIS HOSP Condition: Fair
[2023-03-29 21:41] LABS: Basophils % (A) 0 %; Eosinophils # (A) 0.3 k/uL (0-0.7); Eosinophils % (A) 3 %; HCT 47.3 % (39.0-53.0); HGB 16.1 gm/dL (13.0-17.5); Lymphocytes # (A) 2.2 k/uL (1.0-4.8); Lymphocytes % (A) 29 %; MCH 31.5 pg (25.0-35.0); MCV 92.7 fL (80.0-100.0); Monocytes # (A) 0.4 k/uL (0-1.0); Monocytes % (A) 5 %; Neutrophils # (A) 4.6 k/uL (1.3-7.7); Neutrophils % (A) 61 %; Platelet Count 284 k/uL (150-450); RDW 12.8 % (11.5-15.5); WBC 7.5 k/uL (3.8-10.6)
[2023-03-29 21:51] LABS: ALT 17 U/L (4-49); AST 18 U/L (17-59); African American GFR (CKD) >90 (>60 ml/min/1.73 sqM); Albumin 4.7 g/dL (3.5-5.0); Alkaline Phosphatase 45 U/L (38-126); Anion Gap 9 mmol/L; Blood Urea Nitrogen 12 mg/dL (9-20); Calcium 9.6 mg/dL (8.4-10.2); Carbon Dioxide 26 mmol/L (22-30); Chloride 103 mmol/L (98-107); Glucose 89 mg/dL (74-99); Non-African American GFR(CKD) >90 (>60 ml/min/1.73 sqM); Potassium 4.1 mmol/L (3.5-5.1); Sodium 138 mmol/L (137-145); Total Bilirubin 0.7 mg/dL (0.2-1.3); Total Protein 7.7 g/dL (6.3-8.2)
[2023-03-29] MEDS ORDERED: HYDROCORTISONE SUCCINATE 100 MG/2 ML VIAL IV STA (22:12)
[2023-03-29] MEDS ORDERED: PROCHLORPERAZINE INJ 10 MG/2 ML VIAL IVP STA (22:12)
[2023-03-29 22:37] LABS: Appearance,Urine Clear (Clear); Bacteria,Urine Rare /hpf; Bilirubin,Urine Negative (Negative); Blood,Urine Moderate (Negative); Color,Urine Yellow; Glucose,Urine (UA) Negative (Negative); Ketones,Urine Negative (Negative); Leukocyte Esterase,Urine Negative (Negative); Mucus,Urine Few /hpf; Nitrite,Urine Negative (Negative); Protein,Urine Trace (Negative); RBC,Urine 15 /hpf (0-5); Specific Gravity,Urine 1.018 (1.001-1.035); Squamous Epithelial Cell,Urine <1 /hpf (0-4); Urobilinogen,Urine <2.0 mg/dL (<2.0); WBC,Urine 1 /hpf (0-5)
[2023-03-29 22:50] VITALS: RESP 16
[2023-03-29] MEDS ORDERED: MORPHINE SULFATE 4 MG/ML SYRINGE IV PRN (23:16)
[2023-03-29] MEDS ORDERED: ONDANSETRON 4 MG/2 ML VIAL IVP PRN (23:16)
[2023-03-29] MEDS ORDERED: NALOXONE 0.4 MG/ML 1 ML VIAL IV PRN (23:16)
[2023-03-29] MEDS: SODIUM CHLORIDE 0.9% 1,000 ML IV SCH (23:55)
[2023-03-30 06:21] LABS: Basophils % (A) 0 %; Eosinophils % (A) 0 %; HCT 43.8 % (39.0-53.0); HGB 14.7 gm/dL (13.0-17.5); Lymphocytes # (A) 0.8 k/uL (1.0-4.8); Lymphocytes % (A) 9 %; MCH 31.3 pg (25.0-35.0); MCHC 33.6 g/dL (31.0-37.0); MCV 93.1 fL (80.0-100.0); Mean Platelet Volume 8.2; Monocytes # (A) 0.2 k/uL (0-1.0); Monocytes % (A) 2 %; Neutrophils # (A) 8.6 k/uL (1.3-7.7); Neutrophils % (A) 89 %; Platelet Count 270 k/uL (150-450); RDW 12.6 % (11.5-15.5); WBC 9.7 k/uL (3.8-10.6)
[2023-03-30 06:49] LABS: ALT 16 U/L (4-49); AST 17 U/L (17-59); African American GFR (CKD) >90 (>60 ml/min/1.73 sqM); Albumin 4.1 g/dL (3.5-5.0); Alkaline Phosphatase 39 U/L (38-126); Anion Gap 10 mmol/L; Blood Urea Nitrogen 11 mg/dL (9-20); Calcium 9.2 mg/dL (8.4-10.2); Carbon Dioxide 22 mmol/L (22-30); Chloride 107 mmol/L (98-107); Glucose 106 mg/dL (74-99); Non-African American GFR(CKD) >90 (>60 ml/min/1.73 sqM); Potassium 4.7 mmol/L (3.5-5.1); Sodium 139 mmol/L (137-145); Total Bilirubin 0.8 mg/dL (0.2-1.3); Total Protein 6.9 g/dL (6.3-8.2)
[2023-03-30] MEDS: SODIUM CHLORIDE 0.9% 1,000 ML IV SCH (08:50)
[2023-03-30 08:52] VITALS: BP 108/71; PULSE 85; TEMP 97.9
[2023-03-30] MEDS ORDERED: HYDROCORTISONE 10 MG TAB PO SCH ×2 (10:00→12:00)
[2023-03-30] MEDS ORDERED: FLUDROCORTISONE 0.1 MG TAB PO SCH (10:00)
--- NOTE | 2023-03-30 21:43 | P.HPIM ---
History of Present Illness H&P Date: 03/30/23 Physical pleasant 37-year-old male with medical history of adrenal insufficiency is maintained on hydrocortisone and fludrocortisone outpatient. He comes in for nausea and vomiting was unable to keep down his oral steroids and was admitted to the hospital and given a dose of IV solumedrol. Patient does report his had been coughing and had a slight cold. He was also at an event Wednesday. The n ausea and vomiting diarrhea started on Wednesday lasted 2 days. No fever or chills, no cough or shortness of breath. No chest pain, chest pressure, no abdominal pain. Today his nausea vomiting has improved diet will be upgraded to clear liquids and will recommend to resume his oral steroids. Patient has no elevated white count, his renal function is within normal limits. Urinalysis not suggestive of infection. Covid, Influenza and RSV are negative. REVIEW OF SYSTEMS: CONSTITUTIONAL: No fever, no malaise, no fatigue. HEENT: No recent visual problems or hearing problems. Denied any sore throat. CARDIOVASCULAR: No chest pain, orthopnea, PND, no palpitations, no syncope. PULMONARY: No shortness of breath, no cough, no hemoptysis. GASTROINTESTINAL: No diarrhea, no nausea, no vomiting, no abdominal pain. NEUROLOGICAL: No headaches, no weakness, no numbness. HEMATOLOGICAL: Denies any bleeding or petechiae. GENITOURINARY: Denies any burning micturition, frequency, or urgency. MUSCULOSKELETAL/RHEUMATOLOGICAL: Denies any joint pain, swelling, or any muscle pain. ENDOCRINE: Denies any polyuria or polydipsia. The rest of the 14-point review of systems is negative. PHYSICAL EXAMINATION: GENERAL: The patient is alert and oriented x3, not in any acute distress. Well developed, well nourished. HEENT: Pupils are round and equally reacting to light. EOMI. No scleral icterus. No conjunctival pallor. Normocephalic, atraumatic. No pharyngeal erythema. No thyromegaly. CARDIOVASCULAR: S1 and S2 present. No murmurs, rubs, or gallops. PULMONARY: Chest is clear to auscultation, no wheezing or crackles. ABDOMEN: Soft, nontender, nondistended, normoactive bowel sounds. No palpable organomegaly. MUSCULOSKELETAL: No joint swelling or deformity. EXTREMITIES: No cyanosis, clubbing, or pedal edema. NEUROLOGICAL: Gross neurological examination did not reveal any focal deficits. SKIN: No rashes. 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 History of migraine Anxiety depression and schizoaffective disorder GI prophylaxis Full code Plan If patient tolerates advanced diet and able to keep his oral medications down he can be discharged home later today. Patient will be given oral zofran on discharge. Recommend to follow up with PCP. The impression and plan of care has been dictated by Farheen Ledezma Nurse Practitioner as directed. Dr. Kyle MD I have performed a history and physical examination and medical decision making of this patient, discussed the same with the dictator, and agree with the dictators assessment and plan as written, documented as a scribe. Based on total visit time, I have performed more than 50% of this visit. Past Medical History Additional Past Medical History / Comment(s): congenital adrenal hyperplasia, mi graines History of Any Multi-Drug Resistant Organisms: None Reported Past Surgical History: Bariatric Surgery Additional Past Surgical History / Comment(s): lap band, retina implant, rt eye cataract with lens implant Past Anesthesia/Blood Transfusion Reactions: No Reported Reaction Past Psychological History: Anxiety, Depression, Schizoaffective Disorder Smoking Status: Never smoker Past Alcohol Use History: Occasional Past Drug Use History: Marijuana - Past Family History Mother Additional Family Medical History / Comment(s): Anxiety Father Family Medical History: Diabetes Mellitus Additional Family Medical History / Comment(s): Depression Medications and Allergies Home Medications Medication Instructions Recorded Confirmed Type Fludrocortisone [Florinef] 0.1 mg PO DAILY 04/24/14 03/29/23 History Hydrocortisone [Cortef] 20 mg PO DAILY 04/24/14 03/29/23 History Hydrocortisone [Cortef] 10 mg PO BID@1200,2100 12/13/18 03/29/23 History Ondansetron [Zofran] 4 mg PO Q8HR PRN #20 tab 03/30/23 Rx Allergies Allergy/AdvReac Type Severity Reaction Status Date / Time latex Allergy burning, Verified 03/29/23 22:35 itchy skin Physical Exam Vitals: Vital Signs Temp Pulse Pulse Resp BP BP BP 03/30/23 07:00 97.9 F 85 16 108/71 03/30/23 00:13 16 03/30/23 00:06 97.6 F 82 16 114/74 03/29/23 22:45 98.5 F 78 16 138/84 03/29/23 19:56 98 F 69 18 139/91 Pulse Ox 03/30/23 07:00 98 03/30/23 00:13 03/30/23 00:06 96 03/29/23 22:45 95 03/29/23 19:56 99 Intake and Output 03/29/23 03/30/23 03/30/23 22:59 06:59 14:59 Other: Voiding Method Toilet # Voids 2 Weight 99.79 kg 99.79 kg Results CBC & Chem 7: 03/30/23 05:49 03/30/23 05:49 Labs: Abnormal Lab Results - Last 24 Hours (Table) 03/29/23 03/30/23 03/30/23 Range/Units 20:17 05:49 05:49 Neutrophils # 8.6 H (1.3-7.7) k/uL Lymphocytes # 0.8 L (1.0-4.8) k/uL Glucose 106 H (74-99) mg/dL Phosphorus 5.0 H (2.5-4.5) mg/dL Urine Protein Trace H (Negative) Urine Blood Moderate H (Negative) Urine RBC 15 H (0-5) /hpf Urine Bacteria Rare H (None) /hpf Urine Mucus Few H (None) /hpf Thrombosis Risk Factor Assmnt - Choose All That Apply Any of the Below Risk Factors Present?: Yes Each Factor Represents 1 point: Obesity (BMI >25) Thrombosis Risk Factor Assessment Total Risk Factor Score: 1 Thrombosis Risk Factor Assessment Level: Low Risk Assessment and Plan Time with Patient: Less than 30
--- NOTE | 2023-03-30 21:46 | P.DS ---
Providers Date of admission: 03/29/23 23:18 Attending physician: Jhony Asif Primary care physician: Diamond Sheth Hospital Course: Final Diagnosis Congenital adrenal hypoplasia maintained on fludrocortisone and hydrocortisone outpatient Nausea vomiting diarrhea likely due to a viral gastroenteritis, improved. History of migraine Anxiety depression and schizoaffective disorder Full Code Discharge Disposition Patient is stable for discharge home. He is tolerating diet able to keep down oral medications. He will be given a script for zofran as needed for nausea on discharge. Patient encourage to increase oral fluid intake to avoid dehydration. Diet as tolerated. Follow up with PCP. Hospital Course Physical pleasant 37-year-old male with medical history of adrenal insufficiency is maintained on hydrocortisone and fludrocortisone outpatient. He comes in for nausea and vomiting was unable to keep down his oral steroids and was admitted to the hospital and given a dose of IV solumedrol. Patient does report his had been coughing and had a slight cold. He was also at an event Wednesday. The nausea and vomiting diarrhea started on Wednesday lasted 2 days. No fever or chills, no cough or shortness of breath. No chest pain, chest pressure, no abdo greg pain. Shashi was admitted to the hospital with IV fluids and NPO diet. Today his nausea vomiting has improved diet will be upgraded to clear liquids and will recommend to resume his oral steroids. Patient has no elevated white count, his renal function is within normal limits. Urinalysis not suggestive of infection. Covid, Influenza and RSV are negative. Patients white count remains normal. He would like to be discharged home. Lungs are clear S1 S2 auscultated. Abdomen soft and nontender. Normoactive bowel sounds. Alert x3. Please see medication reconciliation for a list of current medication. Thank you for allowing us to participate in the care of this patient. The impression and plan of care has been dictated by Farheen Ledezma, Nurse Practitioner as directed. Dr. Kyle MD I have performed a history and physical examination and medical decision making of this patient, discussed the same with the dictator, and agree with the dictators assessment and plan as written, documented as a scribe. Based on total visit time, I have performed more than 50% of this visit. Patient Condition at Discharge: Stable Plan - Discharge Summary New Discharge Prescriptions: New Ondansetron [Zofran] 4 mg PO Q8HR PRN #20 tab PRN Reason: Nausea Continue Hydrocortisone [Cortef] 20 mg PO DAILY Fludrocortisone [Florinef] 0.1 mg PO DAILY Hydrocortisone [Cortef] 10 mg PO BID@1200,2100 Discharge Medication List Fludrocortisone [Florinef] 0.1 mg PO DAILY 04/24/14 [History] Hydrocortisone [Cortef] 20 mg PO DAILY 04/24/14 [History] Hydrocortisone [Cortef] 10 mg PO BID@1200,2100 12/13/18 [History] Ondansetron [Zofran] 4 mg PO Q8HR PRN #20 tab 03/30/23 [Rx] Follow up Appointment(s)/Referral(s): Diamond Sheth DO [Primary Care Provider] - 1-2 days Ambulatory/Diagnostic Orders: Basic Metabolic Panel [LAB.AMB] Time Frame: 3 Days, Location: None Selected Activity/Diet/Wound Care/Special Instructions: Diet as tolerated can use zofran every 8 hours as needed for nausea. Discharge Disposition: HOME SELF-CARE
== END 2023-03-30 15:07 | disposition home or self-care (01) ==
LOC: EC 19:35 → 6NMEDSUR 23:18
PROVIDERS: ADMIT Hospitalist; ATTEND Hospitalist
DX: R11.2 Nausea with vomiting, unspecified (principal); R19.7 Diarrhea, unspecified; G43.909 Migraine, unspecified, not intractable, without status migrainosus; E25.0 Congenital adrenogenital disorders associated with enzyme deficiency; F25.9 Schizoaffective disorder, unspecified; F32.A Depression, unspecified; F41.9 Anxiety disorder, unspecified; Z20.822 Contact with and (suspected) exposure to COVID-19; Z79.52 Long term (current) use of systemic steroids; Z91.040 Latex allergy status
CPT/HCPCS: 96375 ×2; 96374; 99285; 36415; 80053 ×2; 83605; 83735; 84100; 85025 ×2; 81001; 87636; G0378 ×2; J0780; J1720; J2405